=== PATIENT | male | born 1980 | race Caucasian/White ===

== ENCOUNTER 2016-08-17 16:04 | Inpatient (IN) | payer BC, MEDICARE ==
--- NOTE | ~2016-08-17 | IDS ---
Interim Discharge Summary [facility] [address] [place]. [address] NAME: SUDARSHAN MIGUEL : 76 STATUS : ADM IN PAT#: [id number] AGE: 36 ADM/REG DATE : 08/17/16 MR#: [id number] REPORT SERV DATE: 08/28/16 DICTATED BY: VITALY ANDREWS DATE: 08/28/16 REPORT STATUS : Draft TRANSCRIBED BY: MODSu DATE: 08/28/16 ADMISSION DATE: 08/17/2016 DISCHARGE DATE: ADDENDUM This dictation is an addition to interim discharge summary dictated by Dr. Bonilla on 08/22/2016. The patient had an LP performed looking for RAFAEL virus. 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 The patient had initially been on a five-day course of high dose steroids which was transitioned to prednisone 60 mg p.o. daily. Status post that transition, the patient significantly worsened neurologically, resulting in him failing a swallow study. Neurology has been following the patient. I recommended restarting a three-day course of high-dose steroids 1000 mg Solu-Medrol q. 24 hours for 3 days, status post resumption of that next day has been some improvement noted in his strength. Given his diagnosis of PML and given that there is no available treatment at this point and given that the patient has a neurologist at the in [place] and the plan is to initiate transfer from [facility] to the in [place]. Transfer to be initiated by a neurologist who is following. Plan has been discussed with the family and they are agreeable with this plan. Discharge planning is pending completion of transfer arrangements. The patient was started on a 3-day IV Solu-Medrol 1000 mg on Sunday. Today 08/28/2016 will be day 3 of that therapy. Subsequently the patient will be transitioned back to 60 mg p.o. daily. Neurology is still following on the case and will be initiating transfer. INDRA/ANDREW Vitaly Andrews MD / [id number] CC: Vitaly Andrews MD
--- NOTE | ~2016-08-17 | CN ---
Consultation Report [facility] [address] [place]. [address] NAME: SUDARSHAN MIGUEL : 76 STATUS : ADM IN PAT#: [id number] AGE: 36 ADM/REG DATE : 08/17/16 MR#: [id number] REPORT SERV DATE: 08/19/16 DICTATED BY: DATE: REPORT STATUS : Draft TRANSCRIBED BY: MODL DATE: 08/18/16 NEUROLOGY CONSULTATION. DATE OF CONSULTATION: 08/18/2016 REASON FOR CONSULT: MS exacerbation. HISTORY OF PRESENT ILLNESS: This is a 36-year-old male who presented to [facility] on 08/17/2016 secondary to progressive MS symptoms. Also, the patient apparently has become more weak with disequilibrium, falls, inability to use a walker as well as confusion and dysarthria. Family reports the patient does have recent steroid roughly three to four weeks ago for presumably MS exacerbation with the patient himself denies any significant improvement, also family apparently think there is transient improvement after steroid therapy, also the patient's most recent weakness and problems apparently started roughly one to two weeks ago. The patient was recently taken off Tecfidera in April 2016 secondary to leukopenic reason where the patient's MS was previously well controlled on combination of Tysabri as well as subsequently Tecfidera. The patient is RAFAEL virus positive. The patient at baseline uses a walker to ambulate and sometimes uses a cane. Able to feed himself and able to carcamo shaving, but the patient is a poor historian himself likely secondary to recent confusion. The patient's case was discussed with the patient's primary neurologist, which is Dr. Megan Kirk. The patient in addition also goes to [facility] in [place] for second opinion and with his MS medication now mostly managed through [facility] in [place]. REVIEW OF SYSTEMS: Otherwise negative except for those mentioned in the HPI. PAST MEDICAL HISTORY: Significant for multiple sclerosis, difficult to control. Previously on Tysabri as well as Tecfidera with the patient previously noted to be RAFAEL virus positive. The patient was also noted to have remote history of seizures in the past. ALLERGIES: NO KNOWN DRUG ALLERGIES WERE NOTED. HOME MEDICATIONS: 1. Baclofen. 2. Vitamin D. 3. Dextromethorphan with quinidine. 4. Keppra 500 mg p.o. b.i.d. 5. Provigil. 6. Multivitamin. SOCIAL HISTORY: Per medical records. He denies tobacco, alcohol, or recreational drug usage. Consultation Report [facility] [address] [place]. [address] NAME: SUDARSHAN MIGUEL : 76 STATUS : ADM IN PAT#: [id number] AGE: 36 ADM/REG DATE : 08/17/16 MR#: [id number] REPORT SERV DATE: 08/19/16 DICTATED BY: DATE: REPORT STATUS : Draft TRANSCRIBED BY: MODL DATE: 08/18/16 FAMILY HISTORY: Significant for coronary artery disease. The patient was noted to have no known drug allergies at the time of evaluation. PHYSICAL EXAMINATION: VITAL SIGNS: At the time of evaluation demonstrated T-max of 97.6, heart rate of 61 to 90, respirations of 14 to 18, and blood pressure of 97 to 108/55 to 66. GENERAL: The patient is well developed, well nourished, in no acute distress. Cardiovascular: Regular rate and rhythm. No carotid bruits were otherwise auscultated. PULMONARY: Clear to auscultation bilaterally. NEUROLOGICAL: Generally the patient alert and oriented to person, place, year, and month. Follow some simple commands, at the time of evaluation was having difficulty following complex commands. Dysarthria was noted with difficulties with registration and recall. The patient in addition also noted to have some mild aphasia at the time of evaluation. Cranial nerves 2 through 12, pupils are equal at the time of evaluation, with the patient's right pupil was sluggish to reactivity. The patient was noted to have saccadic eye movement. Also, the patient was noted to have decreased nasolabial fold as well as asymmetric facial expression with left facial weakness. Tongue was noted to be deviated. The patient was also noted to have asymmetric sensation on the patient's face. Also, the patient noted to have spastic movement of bilateral upper extremity, right worse than the left. The patient, in addition, was also noted to have decreased sensation in the left upper extremity and right lower extremity at the time of evaluation. The patient was noted to have ataxia in bilateral upper extremities. Also the patient was noted to have roughly 4-/5 right upper extremity strength and 4+/5 left upper extremity strength and 3-/5 bilateral lower extremity strength. At the time of evaluation, hyperreflexia was noted. Upgoing toe on bilateral plantar reflexes. Gait was not evaluated due to the patient's weakness. The patient's baseline requires a walker to ambulate. LABORATORY STUDIES: Demonstrated a white blood cell count of 3.4, hemoglobin of 15.3, hematocrit of 43.1, and platelet count of 229. Chemistry Panel: Sodium 140, potassium 3.9, chloride 107, bicarb 24, BUN of 14, creatinine of 0.77, glucose of 141, and calcium of 8.7. CT scan of the brain is concerning for possible new MS lesion in the left frontal area with a possible hypoattenuation for possible surrounding edema. IMPRESSION: 1. Multiple sclerosis exacerbation. The patient reports a four months duration of progressive symptom as well as a functional decline without significant improvement after prior Solu-Medrol therapy roughly three to four weeks ago. Also family members supposedly reported to the ER, last night the patient has some transient improvement after recent steroid therapy. Discussed the patient's case with a local neurologist, Dr. Megan Kirk, who is aware of the patient's case. Given the patient's RAFAEL virus positivity previous Tysabri therapy as well as Tecfidera therapy concerning for Consultation Report [address] [address] NAME: SUDARSHAN MIGUEL : 76 STATUS : ADM IN [facility]#: [id number] AGE: 36 ADM/REG DATE : 08/17/16 MR#: [id number] REPORT SERV DATE: 08/19/16 DICTATED BY: DATE: REPORT STATUS : Draft TRANSCRIBED BY: MODL DATE: 08/18/16 possible progressive MS as well as a potential PML, as a result we are recommending MRI of the brain with and without contrast. We will continue day 2/3 IV Solu-Medrol if MRI looks significantly worse compared to previous scan on 08/01/2016. We will consider a spinal tap for evaluation of possible PML. RECOMMENDATION: 1. Day 2/3 IV Solu-Medrol. 2. MRI of the brain with and without contrast. 3. May need a lumbar puncture for evaluation. [facility]/MODL Ahmet Kothari MD / [id number] CC: Danyel Campbell M.D.
--- NOTE | ~2016-08-17 | IDS ---
Interim Discharge Summary [facility] [address] [place]. [address] NAME: SUDARSHAN MIGUEL : 76 STATUS : ADM IN PAT#: [id number] AGE: 36 ADM/REG DATE : 08/17/16 MR#: [id number] REPORT SERV DATE: 09/18/16 DICTATED BY: CHER SKAGGS DATE: 09/17/16 REPORT STATUS : Draft TRANSCRIBED BY: MODL DATE: 09/17/16 ADMISSION DATE: 08/17/2016 DISCHARGE DATE: CURRENT DIAGNOSES: At the interim discharge summary include: 1. Progressive multiple sclerosis. The patient currently has been changed from IV steroids to oral steroids with very slow tapering. 2. Dysphagia with dysphonia, status post PEG tube insertion done by Dr. Lai, Surgery. The patient tolerating very well feeding tube. 3. Urinary tract infection with urine culture Escherichia coli. Antibiotic day four. 4. History of seizure. 5. Constipation, resolved. 6. Weakness, instability. CONSULTANTS DURING THIS HOSPITALIZATION: This week was Dr. Kothari, Neurology, who signed off. Dr. Lai signed off. HOSPITAL COURSE: This is a very pleasant, unfortunate 36 years old gentleman, who has a history of multiple sclerosis for 20 years, who has been admitted to hospital with MSSA exacerbation. For further details, please see history and physical exam of Dr. Rudi Baron, as well as interim discharge summaries of Dr. Dimas, Dr. Morley, Dr. Cadet as well. Briefly, this patient has been admitted with an MS exacerbation. The patient received IVIG, IV Solu-Medrol. He has been in treatment for MS, followed also in [place] by a doctor at [facility]. There was no significant improvement, and the patient was admitted to the hospital with a worsening functional status. The patient failed swallow study test multiple times. He underwent PEG tube insertion and PEG tube has been inserted by Surgery, that took place on 09/07/2016. The patient has been started on tube feeds with no complications and he is tolerating them very well. The patient has been referred to a couple of rehabs, but so far, the patient has been refused for those facilities. Currently, the patient has been referred to [facility] facility and we are awaiting an evaluation and hopefully acceptance to [facility] for inpatient rehab. He also has been diagnosed with urinary tract infection this week, for which he is on Rocephin day four of antibiotics. The patient remained extremely weak and debilitated, and also, there were no significant changes with stable symptoms during this week of hospitalization. Hopefully, the patient would be able to be transferred to a [facility] facility this week for inpatient rehab. Neurology has recommended slow tapering of his steroids with prednisone 60 mg p.o. daily for seven days, then 50 p.o. daily for seven days, then 40 p.o. daily for seven days, then 30 p.o. daily for seven days, then 20 p.o. daily for seven days, then 10 mg p.o. daily for seven days. The patient's neurologist Dr. Kothari has signed off on the case and currently we again are waiting for inpatient rehab. The patient has poor prognosis and the patient's family has been updated daily by the neurologist as well as by the hospitalist. Medications currently at the interim discharge summary include Dulcolax p.r.n., Rocephin, Lovenox, Keppra, Protonix, and prednisone. Interim Discharge Summary [address] [address] NAME: SUDARSHAN MIGUEL : 76 STATUS : ADM IN [facility]#: [id number] AGE: 36 ADM/REG DATE : 08/17/16 MR#: [id number] REPORT SERV DATE: 09/18/16 DICTATED BY: CHER SKAGGS DATE: 09/17/16 REPORT STATUS : Draft TRANSCRIBED BY: MODL DATE: 09/17/16 My partner is going to start to see Mr. José Miguel Gama from 09/19/2016. [facility]/MODL Cher Skaggs M.D. / [id number] CC: Cher Skaggs M.D.
--- NOTE | ~2016-08-17 | IDS ---
Interim Discharge Summary [facility] [address] [place]. [address] NAME: SUDARSHAN MIGUEL : 76 STATUS : ADM IN PAT#: [id number] AGE: 36 ADM/REG DATE : 08/17/16 MR#: [id number] REPORT SERV DATE: 09/03/16 DICTATED BY: PRESLEY MORLEY DATE: 09/03/16 REPORT STATUS : Draft TRANSCRIBED BY: MODL DATE: 09/03/16 ADMISSION DATE: 08/17/2016 DISCHARGE DATE: CONSULTANTS: Ahmet Kothari M.D., Neurology, and Dr. Crews of GI. PROBLEM LIST: 1. Severe recurring exacerbations multiple sclerosis. 2. Previous seizure. 3. Left lower lobe atelectasis, resolved. 4. Small volume lower gastrointestinal bleed. 5. Episodes of intermittent sinus bradycardia and sinus tachycardia. HISTORY: This patient has had aggressive multiple sclerosis and in the past had been on Tysabri, later was on Tecfidera, previously was noted to be RAFAEL virus positive. He was brought to the emergency room with increased problems with his equilibrium and falling, confusion, and difficulty with speaking. He reportedly had some recent steroid bolus three or four weeks previous without significant improvement. He had been taken off Tecfidera in April 2016 due to leukopenia. During his hospitalization, he has been followed closely by Dr. Kothari and Dr. Aragon, of Neurology. He has had some courses of IV steroids and based on his previous medications and his MRI imaging, there was some concern that he might have PML. The patient has undergone spinal tap on 08/21/2016, had only 1 white blood cells, 5 red blood cells, glucose was 81, protein was 62.7. The HSV type 1 and 2 negative, RAFAEL virus was detected. There was concern that it might be PML. Dr. Kothari, his neurologist here has call to his primary neurologist Dr. Megan Kirk. They have discussed the case. Dr. Kothari has also been calling and talking to Dr. Bravo, the patient's other neurologist that sees him at [facility] in [place]. There has been concern that he might have primarily PML at this point in time. Images of the MRI were sent to Dr. Bravo who felt that it was more consistent with PML. 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 This was sent off to a research lab and Dr. Kothari as of 09/03/2016 received notice from the "focus lab" that the patient's CSF was RAFAEL virus negative. She therefore feels that his deterioration is due to progressive multiple sclerosis so she started back on IV Solu-Medrol and IVIG for five days. When the patient gets steroid, he seems to perk up. When he is off them he certainly seems to worsen with more lethargy, difficulty talking, in fact he got to where he could not speak at all. He had progressive difficulty with swallowing. Because of the progressive swallowing problems, GI Dr. Crews's team has seen him and planning for PEG tube placement on 09/04/2016. The patient's medications have been converted over to intravenous. There was attempt at placement of a Dobbhoff tube but because he could not cooperate and swallow, it was not successful. Because of the high-dose steroids he is back on, he is getting some Protonix for GI ulcer Interim Discharge Summary [address] [address] NAME: SUDARSHAN MIGUEL : 76 STATUS : ADM IN [facility]#: [id number] AGE: 36 ADM/REG DATE : 08/17/16 MR#: [id number] REPORT SERV DATE: 09/03/16 DICTATED BY: PRESLEY MORLEY DATE: 09/03/16 REPORT STATUS : Draft TRANSCRIBED BY: MODL DATE: 09/03/16 prophylaxis. Nursing staff has noticed a very small volume of bright red blood per rectum occasionally. The patient's and parents and brothers have been supportive and present and have been updated throughout by Dr. Kothari and myself. The patient has had some episodes of sinus bradycardia, there was no good explanation for. He is not on any medications to slow his heart rate, and his TSH was 3.93 which is only slightly elevated. He over the last couple of days has had couple of episodes of sinus tachycardia. These seemed to correlate with when he was holding his head as if he was in pain and when he would get pain medications these would resolve. ANNIA/ANDREW Presley Morley M.D. / [id number] CC: Presley Morley M.D.
--- NOTE | ~2016-08-17 | CN ---
Consultation Report [facility] [address] [place]. [address] NAME: SUDARSHAN VALDEZ : 76 STATUS : ADM IN PAT#: [id number] AGE: 36 ADM/REG DATE : 08/17/16 MR#: [id number] REPORT SERV DATE: 09/01/16 DICTATED BY: CORIN FLOYD DATE: 09/01/16 REPORT STATUS : Draft TRANSCRIBED BY: MODL DATE: 09/01/16 GI CONSULTATION DATE OF CONSULTATION: 09/01/2016 REASON FOR CONSULTATION: Evaluation and management of the patient's progressive dysphagia and lot of multiple sclerosis, questionable PML. HISTORY OF PRESENT ILLNESS: Mr. Valdez is a 36-year-old male patient, who presented to [facility] on the with a chief complaint of MS flare. He had been having a few weeks of worsening weakness as well as decline in his neurologic function prior to his admission. He has a history of multiple sclerosis followed by Dr. Heredia, here in [place], as well as he sees Neurology at the [facility] in [place]. He was on the medication called Tecfidera and was taken off that in 04/2016 secondary to leukopenia and has had MS exacerbation really since end of June. He was placed on some steroids with temporary improvement but not much since then. A week or two prior to admission, he began to have further decline consisting of disequilibrium, falls, weakness, and inability to use his walker as well as dysarthria. He has been seen by Neurology here. He has had an MRI which is concerning for questionable PML. He has had RAFAEL virus obtained, titer is pending. Secondary to progressive complaints of dysphagia, GI was consulted for PEG tube placement. I have discussed PEG tube placement with the patient as well as his stepfather who was present at the bedside. I discussed risks, benefits, alternatives, and complications with him to include, but not limited to risk of bleeding, perforation, infection, reaction to medications, as well as cardiac and pulmonary side effects. They were agreeable to proceed. PAST MEDICAL HISTORY: Positive for multiple sclerosis, now questionable PML, as well as history of seizure disorder. SURGICAL HISTORY: None. ALLERGIES: NO KNOWN DRUG ALLERGIES. HOME MEDICATIONS: Baclofen, Vitamin D, dextromethorphan with quinidine, Keppra, Provigil, and multivitamin. SOCIAL HISTORY: He is . No alcohol, tobacco, or illicit drug use. FAMILY HISTORY: Noncontributory from a GI standpoint. REVIEW OF SYSTEMS: A 10-point review of systems has been obtained with the pertinent positives addressed in the history of present illness. PERTINENT LABORATORY DATA: Sodium is 141, potassium is 4.6, BUN is 24, creatinine is 0.66. Consultation Report [facility] [address] [place]. [address] NAME: SUDARSHAN VALDEZ : 76 STATUS : ADM IN PAT#: [id number] AGE: 36 ADM/REG DATE : 08/17/16 MR#: [id number] REPORT SERV DATE: 09/01/16 DICTATED BY: CORIN FLOYD DATE: 09/01/16 REPORT STATUS : Draft TRANSCRIBED BY: ANDREW DATE: 09/01/16 White count is 7.1, hemoglobin is 15.2, hematocrit is 43.1, platelet count 171 with an INR of 1.1. PHYSICAL EXAMINATION: VITAL SIGNS: Temperature 97.1, pulse 84, respirations 16, and blood pressure 96/56. NEURO: Reveals an alert, male, resting in bed. GENERAL: He is cooperative. He is in no distress. He is awake. He has notable spastic movements on his upper extremities. HEAD, EARS, EYES, NOSE, AND THROAT: Anicteric. Pupils are equal, round, and reactive to light and accommodation. Normocephalic and atraumatic. NECK: No JVD. No palpable nodes. LUNGS: Diminished throughout with normal respiratory effort exhibited. Equal expansion. CARDIOVASCULAR: Regular rate and rhythm. ABDOMEN: Soft, flat, nontender with active bowel sounds in all four quadrants. EXTREMITIES: No edema. Normal distal pulses. SKIN: Warm, dry, and intact. ASSESSMENT AND PLAN: 1. Progressive dysphagia secondary to multiple sclerosis. 2. MS exacerbation with questionable PML, ongoing workup pending. 3. Seizures with being on Keppra. PLAN: 1. Anticipate PEG tube on Sunday09/04/2016. 2. Hold Lovenox after his dose. 3. We will have Nutrition see him for tube feeding recommendations. 4. Add preprocedure Ancef prior to PEG tube. We will follow. DG/MODL ARMIDA Avila / [id number] CC: Harish Morley M.D.
--- NOTE | ~2016-08-17 | HP ---
History And Physical [facility] [address] [place]. [address] NAME: SUDARSHAN VALDEZ : 76 STATUS : ADM IN PAT#: [id number] AGE: 36 ADM/REG DATE : 08/17/16 MR#: [id number] REPORT SERV DATE: 08/18/16 DICTATED BY: SHEEBA ROLLE DATE: 08/17/16 REPORT STATUS : Draft TRANSCRIBED BY: MODSu DATE: 08/17/16 DATE OF ADMISSION: 08/17/2016 POINT OF ENTRY: [facility] Emergency Department. NEUROLOGIST: Dr. Megan Kirk. CHIEF COMPLAINT: MS flare. HISTORY OF PRESENT ILLNESS: Mr. Valdez is a 36-year-old gentleman with history of multiple sclerosis, who presents to the emergency department today with few week history of worsening weakness and decline in neurologic function. The patient has a history of multiple sclerosis. He is followed by Dr. Kirk here in [place] as well as by a neurologist through the [facility] in [place]. He reportedly was taken off his Tecfidera in April of 2016 for leukopenia. He has had MS exacerbation sensed in in the end of June early July and was placed on a dose of steroids with some temporary improvement in his symptoms. Family states that beginning about a week or two ago, he is again started to have significant decline, including disequilibrium, falls, weakness with now inability to use his walker as well as some confusion and dysarthria. Family presented to the emergency department today hoping to get some kind of help such as home health and was now refer to inpatient admission. Initial evaluation in the emergency department for labs otherwise unremarkable. CT scan of the brain showed extensive bilateral white matter lesions consistent with multiple sclerosis as well as an active multiple sclerosis plaque in the frontal horn of the left lateral ventricle, consistent with acute MS exacerbation as this plaque was not seen on a recent MRI from approximately two weeks ago. Dr. Kirk was contacted and she recommended inpatient admission as well as initiation of Solu-Medrol 1 g daily for the next three days. COMPREHENSIVE REVIEW OF SYSTEMS: Otherwise negative unless listed in history of present illness. PREVIOUS MEDICAL HISTORY: 1. Multiple sclerosis. 2. Remote history of seizure. SURGICAL HISTORY: None. ALLERGIES: NO KNOWN DRUG ALLERGIES. HOME MEDICATIONS: 1. Baclofen 10 mg t.i.d. 2. Vitamin D 400 units daily. 3. Dextromethorphan with quinidine 20-10 one tablet b.i.d. 4. Keppra 500 mg b.i.d. History And Physical [address] [address] NAME: SUDARSHAN VALDEZ : 76 STATUS : ADM IN PAT#: [id number] AGE: 36 ADM/REG DATE : 08/17/16 MR#: [id number] REPORT SERV DATE: 08/18/16 DICTATED BY: SHEEBA ROLLE DATE: 08/17/16 REPORT STATUS : Draft TRANSCRIBED BY: ANDREW DATE: 08/17/16 5. Provigil 200 mg daily p.r.n. 6. Multivitamin one tablet daily. SOCIAL HISTORY: Denies any tobacco, alcohol, or illicits. FAMILY MEDICAL HISTORY: Notable for coronary artery disease in extended family members, but no history of multiple sclerosis in immediate or extended family members. LABORATORY DATA AND IMAGIN. White count is 5.5, hemoglobin is 16.8, hematocrit is 48.1, and platelet count is 208. 2. Sodium is 141, potassium 4.2, chloride 105, carbon dioxide 26, BUN 16, creatinine 0.81, glucose is 106, calcium is 8.9, magnesium is 2.0, protein 7.2, albumin is 3.8, bilirubin is 0.8, ALT is 55, AST 27, alkaline phosphatase is 114. 3. CT scan of the brain shows extensive bilateral white matter lesions consistent with multiple sclerosis as well as an acute-appearing multiple sclerosis plaque in the frontal horn of the left lateral ventricle, not previously seen on 08/01/2016 MRI. PHYSICAL EXAMINATION: VITAL SIGNS: Temperature is 98.2 degrees Fahrenheit, pulse is 78, respirations 16, saturating 99% on room air, blood pressure is 120/73. GENERAL: The patient is awake, alert, and in no acute distress, resting comfortably in bed. He is a well-developed and well-nourished male. Family is at bedside. HEENT: Atraumatic and normocephalic. Moist mucous membranes. Pupils are equal, round, reactive to light and accommodation. Extraocular eye movements are intact. No scleral icterus. NECK: No jugular venous distention. No carotid bruits. CARDIAC: Regular rate and rhythm. No murmurs or gallops. Normal S1. Normal S2. LUNGS: Clear to auscultation bilaterally. No wheezes, rhonchi, or crackles. ABDOMEN: Soft, nontender, nondistended with good bowel sounds. No rebound, guarding, or rigidity. EXTREMITIES: Warm and well perfused. No cyanosis, clubbing, or edema. SKIN: Warm and dry. PSYCH: Affect appropriate. NEURO: Alert and oriented x3. Does have some dysarthria making it difficult to understand the patient. He does have diffuse weakness, however, his right upper and lower extremity is 4/5, which is weaker than the left. Otherwise, no focal neurologic deficits appreciated. Gait was not assessed. ASSESSMENT AND PLAN: Mr. Valdez is a 36-year-old gentleman with a known history of multiple sclerosis, now off his Tecfidera secondary to adverse drug reaction, who now presents with a few week history of falls, weakness, confusion, and dysarthria concerning for acute multiple sclerosis exacerbation. PROBLEM LIST: 1. Multiple sclerosis exacerbation. 2. Dysarthria. 3. Weakness. History And Physical [address] [address] NAME: SUDARSHAN VALDEZ : 76 STATUS : ADM IN [facility]#: [id number] AGE: 36 ADM/REG DATE : 08/17/16 MR#: [id number] REPORT SERV DATE: 08/18/16 DICTATED BY: SHEEBA ROLLE DATE: 08/17/16 REPORT STATUS : Draft TRANSCRIBED BY: ANDREW DATE: 08/17/16 PLAN: 1. Multiple sclerosis exacerbation. We will admit the patient to the Hospitalist Service. Consult Neurology. Neurology has already been contacted by the emergency department here and they recommended high-dose Solu-Medrol for three days, which we will institute. Consult Physical Therapy and Occupational Therapy for evaluation for possible need for home health and/or placement upon discharge. 2. Dysarthria. I suspect the patient's dysarthria is related to his MS exacerbation. CT scan of the brain showed no evidence of any acute cerebrovascular accident, but did show a new MS plaque in the left lateral ventricle area. Given recent MRI from 08/01/2016, we will defer decision for repeat MRI to Neurology in the morning. 3. DVT prophylaxis. Lovenox subcutaneously. CODE STATUS: The patient wished to be full code. JCB/MODL Sheeba Rolle MD / [id number] CC: Danyel Campbell M.D.
--- NOTE | ~2016-08-17 | DS ---
Discharge Summary [facility] [address] [place]. [address] NAME: SUDARSHAN VALDEZ : 76 STATUS : DIS IN PAT#: [id number] AGE: 36 ADM/REG DATE : 08/17/16 MR#: [id number] REPORT SERV DATE: 09/25/16 DICTATED BY: GUILLERMO STAHL DATE: 09/22/16 REPORT STATUS : Draft TRANSCRIBED BY: ANDREW DATE: 09/22/16 ADMISSION DATE: 08/17/2016 DISCHARGE DATE: 09/22/2016 DIAGNOSES: 1. Progressive multiple sclerosis. 2. Dysphagia. 3. Dysphonia. 4. Urinary tract infection, treated. 5. Debility. 6. History of seizure disorder. FOLLOWUP: The patient should follow up with the primary care physician in one to two weeks after rehab and to follow up with his neurologist, Dr. Kirk, in two weeks. The patient is to continue with high-risk aspiration precaution. DISCHARGE MEDICATIONS: Keppra 500 mg per PEG b.i.d.; Florastor one cap per PEG b.i.d.; prednisone taper, per Neurology, 50 mg p.o. q.a.m., to stop on 09/24/2016, then to change to 40 mg p.o. daily, and to stop on 10/01/2016, then change to 30 mg p.o. daily, to stop on 10/08/2016, then change to 20 mg p.o. q.a.m. and to stop on 10/15/2016, then change to 10 mg p.o. daily, to stop on 10/22/2016; Tylenol 650 mg per PEG q.4 hours p.r.n.; bisacodyl p.r.n., Vimpat per PEG p.r.n., Provigil 200 mg p.o. per PEG daily p.r.n.; Zofran 4 mg per PEG q.4 hours p.r.n.; cholecalciferol 400 units per PEG daily; multivitamin per PEG daily; Nexium suspension 40 mg per PEG daily for four weeks. CONSULTANTS: Dr. Izabella Kothari, Neurology; and General Surgery, Dr. Stuart Lai. HOSPITALIST: Dr. Rudi Baron, Dr. Bonilla, Dr. Dimas, Dr. Morley, Dr. Rosalie Cadet, Dr. Cher Bright. HOSPITAL COURSE: Please see multiple summaries per hospitalist for further details. In short, this is a 36-year-old male with a past medical history of multiple sclerosis for approximately 20 years, being followed by Dr. Kirk, neurologist, locally as well as a specialist in [place]. The patient apparently has been treated for MS in [place] without significant improvement and was readmitted to [facility] for worsening symptoms. The patient was seen by Neurology, seen by Dr. Izabella Kothari, and the patient was initiated on steroids, initially started on IV Solu-Medrol and transitioned to prednisone. Due to the patient's dysphagia, he did require PEG tube placement laparoscopically by Dr. Stuart Lai. The patient had an MRI. 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 His HSV serology was negative, but positive for RAFAEL virus that was detected. Dr. Izabella Kothari, neurologist, consulted with the patient's primary neurologist, Dr. Kirk, and Dr. Bravo, the patient's neurologist in [place] and images were sent to the patient's [place] physician. Therefore, the patient was seen by a specialist/regional expert on PML, who advised the CSF RAFAEL virus titer and Dr. Kothari, as per report, per Dr. Morley's note received a focus lab of a negative RAFAEL virus. Therefore, active RAFAEL virus was ruled out, and the patient was initiated on IVIG and continued on steroid per neurology for a progressive Discharge Summary [address] [address] NAME: SUDARSHAN VALDEZ : 76 STATUS : DIS IN PAT#: [id number] AGE: 36 ADM/REG DATE : 08/17/16 MR#: [id number] REPORT SERV DATE: 09/25/16 DICTATED BY: GUILLERMO STAHL DATE: 09/22/16 REPORT STATUS : Draft TRANSCRIBED BY: MODL DATE: 09/22/16 multiple sclerosis. The patient continued to require physical therapy, occupational therapy, and family also agreed for inpatient rehab and attended care for Mr. Valdez initiating on 09/19/2016 for which at that time the patient's acute initial workup was already performed. Again, at that time, the patient was awaiting rehab approval. He continued to tolerate his tube feeds. No signs of aspiration. Vital signs remained stable and afebrile. The patient was approved for inpatient rehab at [facility]. Case Management initially had trouble of finding an inpatient rehab facility due to the patient being denied by multiple facilities, but was approved for [facility], and the facility was reviewed by family and also approved by family/ for inpatient rehab, and the patient was discharged and transferred to an inpatient rehab at [facility]. DIMAS/MODL Guillermo Stahl M.D. / [id number] CC: Danyel Mckee M.D. Sally Horne, MD
--- NOTE | ~2016-08-17 | DS ---
Discharge Summary [facility] [address] [facility] [place]. [address] NAME: SUDARSHAN MIGUEL : 76 STATUS : ADM IN PAT#: [id number] AGE: 36 ADM/REG DATE : 08/17/16 MR#: [id number] REPORT SERV DATE: 08/24/16 DICTATED BY: VITALY ANDREWS DATE: 08/23/16 REPORT STATUS : Draft TRANSCRIBED BY: MODL DATE: 08/23/16 ADMISSION DATE: 08/17/2016 DISCHARGE DATE: BRIEF HISTORY: The patient is a 36-year-old year old male with a history of multiple sclerosis, who presented to the hospital and was admitted secondary to multiple sclerosis exacerbation. Please refer to H and P dictated on 08/18/2016. HOSPITAL COURSE: Please refer to interim discharge summary dictated by Dr. Myles Bonilla on 08/22/2016. In addition, the patient completed a course of Solu-Medrol, was transitioned by Nephrology to prednisone 60 mg p.o. daily. Also, vitamin D level was measured and noted to be 22, which was low. The patient has been placed on vitamin D supplementation to correct vitamin D deficiency. From Neurology standpoint, workup has been completed, and the patient is to be discharged to rehab facility. Case management has been consulted to assist with placing the patient in rehab. Likely, the patient will be accepted to a facility today and will be discharged to this facility. Plan has been discussed with the patient who voices understanding. DISCHARGE DIAGNOSES: 1. Multiple sclerosis exacerbation. 2. Vitamin D deficiency. 3. Muscle spasm. 4. Spastic paralysis. 5. Fatigue. DISCHARGE EXAM: VITAL SIGNS: Blood pressure 95/51 with a pulse of 58, respirations 14, and O2 saturation 96% on room air. GENERAL: The patient lying in bed with a flat affect. ENDS DOWN CHECKER present in room helping to feed the patient. HEENT: Normocephalic, atraumatic. Extraocular motor is intact. Anicteric sclerae. Moist oral mucosa. NECK: Trachea midline and symmetric. No masses noted. CARDIOVASCULAR: Regular rate and rhythm. S1, S2. No murmurs, rubs, or gallops. LUNGS: Clear to auscultation bilaterally. No added breath sounds. ABDOMEN: Positive bowel sounds. Nontender. Nondistended. EXTREMITIES: No cyanosis, no clubbing, no edema. MUSCULOSKELETAL: The patient appears overall weak and unable to lift feet off from bed. NEUROLOGIC: The patient is alert, very soft-spoken, not really answering my questions; however, the patient does appear alert and oriented. CONSULTANTS: Neurology was consulted in this case, Dr. Kothari. DISCHARGE MEDICATIONS: 1. Baclofen 10 mg p.o. three times a day. 2. Vitamin D - cholecalciferol 2000 units p.o. daily. 3. Keppra 500 mg p.o. twice a day. Discharge Summary [address] [address] NAME: SUDARSHAN MIGUEL : 76 STATUS : ADM IN [facility]#: [id number] AGE: 36 ADM/REG DATE : 08/17/16 MR#: [id number] REPORT SERV DATE: 08/24/16 DICTATED BY: VITALY ANDREWS DATE: 08/23/16 REPORT STATUS : Draft TRANSCRIBED BY: ANDREW DATE: 08/23/16 4. Multivitamin. 5. Prednisone 60 mg p.o. with breakfast. IMAGIN. Brain CT without contrast. Impression: Extensive bilateral white matter lesion consistent with history of MS. There is evidence, suggest an active MS plaque edges into the frontal horn of the left lateral ventricle with vasogenic edema and mild mass effect on the frontal horn of the lateral ventricle that was not present on the MRI from 08/01/2016. 2. MRI brain with and without contrast. Impression: Extensive deep white matter changes enhancement, characteristic, and history certainly consistent with moderate to marked burden of MS. The enhancing characteristics seen previously are stabilized. There is ongoing atrophy, [id number]. The corpus callosum in particular seems to be atrophied in advance of cerebral hemispheres. Findings are certainly consistent with relapsing remitting pattern. DISPOSITION: The patient will be discharged to rehab. ACTIVITY: As tolerated. DIET: Regular. INDRA/ANDREW Vitaly Andrews MD / [id number] CC: Vitaly Andrews MD
--- NOTE | ~2016-08-17 | OP ---
Record Of Operation [facility] [address] [place]. [address] NAME: SUDARSHAN MIGUEL : 76 STATUS : ADM IN PAT#: [id number] AGE: 36 ADM/REG DATE : 08/17/16 MR#: [id number] REPORT SERV DATE: 09/07/16 DICTATED BY: VITALY QUIJANO JR. DATE: 09/07/16 REPORT STATUS : Draft TRANSCRIBED BY: MODL DATE: 09/07/16 DATE OF PROCEDURE: 09/07/2016 SURGEON: Vitaly Quijano M.D. PLY CUTTER: Germain Guthrie. PROCEDURE: Laparoscopic gastrostomy tube placement. PREOPERATIVE DIAGNOSIS: Multiple sclerosis with aspiration. POSTOPERATIVE DIAGNOSIS: Multiple sclerosis with aspiration. ANESTHESIA: General. INDICATIONS: This patient has had history of multiple sclerosis. He has aspiration syndrome. Feeding tube was indicated. Endoscopic approach was not suitable in view of the stomach location, therefore laparoscopic approach was indicated. FINDINGS: On laparoscopic exam of the abdomen, the stomach is able to be pulled to the abdominal wall without significant tension and satisfactory tube placement is undertaken. DESCRIPTION OF PROCEDURE: With adequate general anesthesia, the patient was placed in the supine position. The abdomen was prepped and draped sterilely. Marcaine 0.5% was used for local infiltration of the trocar sites. A supraumbilical incision was made. The dissection was carried down sharply through the subcutaneous tissues. The fascia and perineum were opened. The peritoneal cavity was entered. A balloon-tipped trocar was introduced. The abdomen was insufflated with CO2. Then a 5 mm trocar was placed in the right upper quadrant and a grasper was introduced. The stomach was pulled down. Three T-fasteners were placed through the anterior abdominal wall and then a needle into the gastric lumen with a guidewire and then a series of dilators until the peel-away sheath was placed and then the 14-Slovenian G-tube was placed through the sheath into the gastric lumen. The sheath was peeled away and removed. The gastric balloon of the tube was inflated with 5 mL of sterile water and this was seated at the abdominal wall without tension and the T-fasteners were sewed to the abdominal wall to secure this in place as well along with the collar around the G-tube and the fixing bracket. Then, the midline incision was closed at the fascial layer with 0 PDS. All wounds were then closed with dermal Monocryl. Sterile dressings were applied. The patient left the operating room in satisfactory condition. The estimated blood loss was 10 mL. ZENAIDA/ANDREW Vitaly Quijano Jr., M.D. Record Of [address] [address] NAME: SUDARSHAN MIGUEL : 76 STATUS : ADM IN PAT#: [id number] AGE: 36 ADM/REG DATE : 08/17/16 MR#: [id number] REPORT SERV DATE: 09/07/16 DICTATED BY: VITALY QUIJANO JR. DATE: 09/07/16 REPORT STATUS : Draft TRANSCRIBED BY: ANDREW DATE: 09/07/16 / [id number] CC: Rosalie Cadet M.D.
--- NOTE | ~2016-08-17 | EEG ---
Electroencephalogram [facility] [address] [facility] [place]. [address] NAME: SUDARSHAN MIGUEL : 76 STATUS : ADM IN PAT#: [id number] AGE: 36 ADM/REG DATE : 08/17/16 MR#: [id number] REPORT SERV DATE: 08/31/16 DICTATED BY: DATE: REPORT STATUS : Draft TRANSCRIBED BY: MODL DATE: 08/31/16 NEUROLOGY EEG REPORT CLINICAL INDICATIONS: Encephalopathy. DESCRIPTION: This EEG was performed using 10/20 electrode placement system. During the EEG study, the patient was noted to have asymmetric background activity with the patient noted to have left-sided slowing as well as background attenuation especially in the left temporal parietal area. Otherwise, the patient was noted to have predominant occipital rhythm of roughly 10 hertz. Photic stimulation was performed with appropriate driving response, mostly seeing on the right side. Hyperventilation was not performed as the patient was not following instructions. The patient achieved drowsy state during the EEG study. No seizure activity or seizure discharge was otherwise noted. No ongoing electrographic seizure was seen during the EEG study. INTERPRETATION: This EEG study obtained during awake and drowsy state may be considered abnormal secondary to presence of slowing especially on the left side as well as background attenuation suggesting possible underlying structure abnormalities. Clinical correlation is otherwise recommended. No electrographic seizure was seen during the EEG evaluation. [facility]/ANDREW Ahmet Kothari MD / [id number] CC: Harish Morley M.D.
--- NOTE | ~2016-08-17 | IDS ---
Interim Discharge Summary [facility] [address] [place]. [address] NAME: SUDARSHAN MIGUEL : 76 STATUS : ADM IN PAT#: [id number] AGE: 36 ADM/REG DATE : 08/17/16 MR#: [id number] REPORT SERV DATE: 09/12/16 DICTATED BY: ROSALIE CADET DATE: 09/11/16 REPORT STATUS : Draft TRANSCRIBED BY: MODL DATE: 09/11/16 ADMISSION DATE: 08/17/2016 DISCHARGE DATE: PROBLEM LIST: 1. Progressive multiple sclerosis. The patient has been on all kinds of multiple sclerosis medications as an outpatient and was not tolerating the last medication. Seen by neurologists here, Dr. Aragon and Dr. Kothari. The last discussion between the family and Dr. Aragon was the patient will follow up at [facility] in [place], [facility] if they desire any experimental medication; otherwise, the patient will remain in 6 weeks of daily steroid dose, but no further treatment is planned. 2. Dysphagia status post PEG tube insertion done by Dr. Lai. HISTORY OF PRESENT ILLNESS: This is a very unfortunate 36-year-old male patient, who has suffered multiple sclerosis for 20 years, came to the hospital with MS flare and possible exacerbation. Please see dictated H and P. HOSPITAL COURSE: Please see dictated interim discharge summary with Dr. Bonilla and Dr. Dimas and Dr. Morley. Briefly, the patient was here admitted to hospital for worsening of functional status, weakness, had all kinds of evaluation. The patient went through three cycles of IVIG and IV Solu-Medrol without significant improvement. The patient has been on all kinds of treatment for multiple sclerosis. The patient is followed by Dr. Bravo, a doctor in neuro hospital in [facility]. All these measures did not make him any better. Later he failed swallow test multiple times. When I resumed the case at that time, he was not on any nutrient and waiting for the PEG tube insertion. We had to put the NG tube for few days until Dr. Lai can start the surgery. Initially, the PEG tube was ordered to get inserted by GI, Interventional Radiology; however, because of the anatomy issue, had to be done surgically. The patient had PEG tube insertion on 09/07/2016, and after that the tube feeding is going well without any problem. Had a long discussion regarding further plan and followup plan and rehab issue. [facility] denied this patient. Initially, the patient was going to go home with Home Health, but the family thought the nursing facility will be much better for this care, so we are waiting for the [facility] arrangement. Currently, the insurance approval is still pending. The patient has been stable for the whole time that I had to take care of this patient and tolerating tube feeding and is at the goal already. We will continue tube feeding and continuing steroid 60 mg per day, then cutting down every 10 per week, and the patient can follow up as an outpatient with the family support to the neuro hospital at [facility] if they desired any experimental medication. Has a very poor prognosis and the patient's family has been multiple times informed with the neurologist. NA/ANDREW Interim Discharge Summary [address] [facility] [place] [address] NAME: SUDARSHAN MIGUEL : 76 STATUS : ADM IN PAT#: [id number] AGE: 36 ADM/REG DATE : 08/17/16 MR#: [id number] REPORT SERV DATE: 09/12/16 DICTATED BY: ROSALIE CADET DATE: 09/11/16 REPORT STATUS : Draft TRANSCRIBED BY: ANDREW DATE: 09/11/16 Rosalie Cadet M.D. / [id number] CC: Rosalie Cadet M.D.
--- NOTE | ~2016-08-17 | IDS ---
Interim Discharge Summary [facility] [address] [place]. [address] NAME: SUDARSHAN MIGUEL : [birth year] STATUS : ADM IN PAT#: [id number] AGE: 36 ADM/REG DATE : 08/17/16 MR#: [id number] REPORT SERV DATE: 08/22/16 DICTATED BY: MYLES HILTON DATE: 08/21/16 REPORT STATUS : Draft TRANSCRIBED BY: MODL DATE: 08/21/16 ADMISSION DATE: 08/17/2016 DISCHARGE DATE: DATE OF DISCHARGE: Pending. CURRENT ADMISSION DIAGNOSES: Multiple sclerosis exacerbation, muscle spasms, spastic paralysis, remote history of seizure. CURRENT CONDITION: Critical. BRIEF HISTORY OF PRESENT ILLNESS: This is a 36-year-old male with medical history of multiple sclerosis, who presented to the hospital with symptoms of multiple sclerosis exacerbation with dysarthria and inability to walk and generalized fatigue. The patient is well-known to the Neurology Service and Neurology is currently on board, assisting in the management of this patient. HOSPITAL COURSE: 1. Multiple sclerosis exacerbation. The patient is currently receiving high dose Solu- Medrol and condition is currently slightly improving. 2. No known precipitant of acute exacerbation has been detected. The patient underwent a lumbar puncture in order to rule out PML. The PCR for RAFAEL virus is currently pending. 3. History of seizure disorder. The patient has remote history of seizure disorder. No evidence of seizure activity has been noted throughout the course of this admission. CONSULTATION: Neurology. Neurology is currently calling the shots on this patient and the hospitalist is currently assisting in the management of the patient. ESMEO/ANDREW Myles Hilton MD / [id number] CC: Myles Hilton MD
--- NOTE | ~2016-08-17 | EGD ---
EGD REPORT [facility] [address] [address] NAME: NATAN VALDEZ : [birth year] STATUS : ADM IN PAT#: [id number] AGE: 36 ADM/REG DATE : 08/17/16 MR#: [id number] REPORT SERV DATE: 09/04/16 DICTATED BY: NATAN CANTU DATE: 09/04/16 REPORT STATUS : Draft [facility]ANS[facility]IB[facility]: [facility] DATE: 09/04/16 [facility] Patient Name: Natan Valdez Date of : 1980 Attending MD: NATAN CANTU MD Procedure Date No Time: 09/04/2016 Procedure: Upper GI endoscopy Indications: Place PEG because patient is unable to eat, Place PEG due to dysphagia, Place PEG due to aspiration risk Referring MD: Harish Morley MD Medicines: Monitored Anesthesia Care Complications: No immediate complications. Estimated blood loss: None. Procedure: Pre-Anesthesia Assessment: - ASA Grade Assessment: III - A patient with severe systemic disease. After obtaining informed consent, the endoscope was passed under direct vision. Throughout the procedure, the patient's blood pressure, pulse, and oxygen saturations were monitored continuously. The GIF [id number] was introduced through the mouth, and advanced to the second part of duodenum. The upper GI endoscopy was accomplished without difficulty. The patient tolerated the procedure well. Findings: The examined esophagus was normal. The entire examined stomach was normal. The patient was placed in the supine position for PEG placement. The stomach was insufflated to appose gastric and abdominal sosa. However, due to inability to localize a site for safe percutaneous placement, inadequate transillumination and inadequate one-to-one localization (i.e. inadequate localization by palpation) PEG was not completed. The needle/trocar was not passed. One non-bleeding cratered duodenal ulcer with no stigmata of bleeding was found in the duodenal bulb. The lesion was 8 mm in largest dimension. Impression: - One duodenal ulcer with clean base. - Due to inability to localize a site for safe percutaneous placement, inadequate transillumination and inadequate one-to-one localization (i.e. inadequate localization by palpation) PEG was not completed. The needle/trocar was not passed. Recommendation: - Return patient to [facility] for [facility] care. - Use Protonix (pantoprazole) 40 mg IV BID for 8 weeks. - Refer to an interventional radiologist today to see if EGD REPORT [address] [place]. [address] NAME: EFFIENATAN SIERRA : [birth year] STATUS : ADM IN [facility]#: [id number] AGE: 36 ADM/REG DATE : 08/17/16 MR#: [id number] REPORT SERV DATE: 09/04/16 DICTATED BY: NATAN CANTU DATE: 09/04/16 REPORT STATUS : Draft TRANSCRIBED BY: [facility] DATE: 09/04/16 they [address] to place PEG tube; if not, will require surgical consult. Procedure Code(s): --- Professional --- 75295, Esophagogastroduodenoscopy, flexible, transoral; diagnostic, including collection of specimen(s) by brushing or washing, when performed (separate procedure) Diagnosis Code(s): --- Professional --- K26.9, Duodenal ulcer, unspecified as acute or chronic, without hemorrhage or perforation R63.3, Feeding difficulties Z43.1, Encounter for attention to gastrostomy R13.10, Dysphagia, unspecified CPT copyright 2013 [employer]. All rights reserved. The codes documented in this report are preliminary and upon icd 9 coder review may be revised to meet current compliance requirements. Natan Cantu MD NATAN CANTU MD 09/04/2016 8:01 AM This report has been signed electronically. Number of Addenda: 0 Note Initiated On: 09/04/2016 7:30 AM Scope Withdrawal Time 0 hours 0 minutes 0 seconds [id number] [address]
[2016-08-17 15:54] LABS: BASOPHILS 0.5 %; BASOPHILS ABSOLUTE 0.03 10/3/uL (0.0-0.16); EOSINOPHILS 4.2 %; EOSINOPHILS ABSOLUTE 0.23 10/3/uL (0.0-0.53); ER CBC TAT 0 Hrs 05 Mins; HEMATOCRIT 48.1 % (40.0-51.0); HEMOGLOBIN 16.8 g/dL (13.6-17.8); IMMATURE GRANULOCYTES 0.2 %; IMMATURE GRANULOCYTES ABSOLUTE 0.01 10/3/uL (0.0-0.11); LYMPHOCYTES 11.7 %; LYMPHOCYTES ABSOLUTE 0.65 10/3/uL (0.67-4.30); MEAN CORPUS HGB CONC 34.9 g/dL (32.0-36.0); MEAN CORPUSCULAR HEMOGLOB 32.7 pg (26.0-34.0); MEAN CORPUSCULAR VOLUME 93.8 fL (80-100); MEAN PLATELET VOLUME 9.6 fL (9.2-13.0); MONOCYTES 17.1 %; MONOCYTES ABSOLUTE 0.95 10/3/uL (0.21-1.20); NEUTROPHILS 66.3 %; NEUTROPHILS ABSOLUTE 3.67 10/3/uL (2.02-8.40); PLATELET COUNT 208 10/3/uL (150-400); RBC DISTRIBUTION WIDTH 12.6 % (12.0-16.0); RED CELL COUNT 5.13 10/6/uL (4.7-6.1); WHITE BLOOD CELLS 5.5 10/3/uL (4.5-10.5)
[2016-08-17 15:55] LABS: MANUAL DIFF NO %
[2016-08-17 16:15] LABS: A/G RATIO 1.1 (0.7-1.9); ALBUMIN 3.8 G/DL (3.5-5.0); ALKALINE PHOSPHATASE 114 U/L (45-117); BUN (BLOOD UREA NITROGEN) 16 MG/DL (6-23); CALCIUM, SERUM 8.9 MG/DL (8.5-10.4); CHLORIDE, SERUM 105 MMOL/L (96-112); CO2 (CARBON DIOXIDE) 26 MMOL/L (24-34); CREATININE 0.85 MG/DL (0.70-1.30); GFR AFRICAN AMERICAN 128 ML/MIN (>=60); GFR NON AFRICAN AMERICAN 111 ML/MIN (>=60); GLOBULIN 3.4 G/DL (2.5-4.1); GLUCOSE, SERUM 106 MG/DL (60-99); POTASSIUM, SERUM 4.2 MMOL/L (3.5-5.3); SGOT(AST) 27 U/L (5-40); SGPT(ALT) 55 U/L (5-65); SODIUM, SERUM 141 MMOL/L (135-148); TOTAL BILIRUBIN 0.8 MG/DL (0-1.2); TOTAL PROTEIN 7.2 G/DL (6.0-8.5)
[2016-08-17] MEDS ORDERED: KEPPRA500 PO (19:28)
[2016-08-17] MEDS ORDERED: PROVIGIL2 PO (19:29)
[2016-08-17] MEDS ORDERED: LIOR10 PO (19:31)
[2016-08-17] MEDS ORDERED: THERGRANM PO (19:31)
[2016-08-17] MEDS ORDERED: VITAMIN D400 UNI1 PO (19:31)
[2016-08-17] MEDS ORDERED: NUEDEXTA 20-101 EACH PO (19:33)
[2016-08-18 07:03] LABS: BASOPHILS 0 %; EOSINOPHILS 0 %; HEMATOCRIT 43.1 % (40.0-51.0); HEMOGLOBIN 15.3 g/dL (13.6-17.8); LYMPHOCYTES 13.9 %; LYMPHOCYTES ABSOLUTE 0.47 10/3/uL (0.67-4.30); MANUAL DIFF NO %; MEAN CORPUS HGB CONC 35.5 g/dL (32.0-36.0); MEAN CORPUSCULAR HEMOGLOB 32.6 pg (26.0-34.0); MEAN CORPUSCULAR VOLUME 91.7 fL (80-100); MONOCYTES 1.5 %; MONOCYTES ABSOLUTE 0.05 10/3/uL (0.21-1.20); NEUTROPHILS 84.6 %; NEUTROPHILS ABSOLUTE 2.85 10/3/uL (2.02-8.40); PLATELET COUNT 229 10/3/uL (150-400); RBC DISTRIBUTION WIDTH 12.7 % (12.0-16.0); WHITE BLOOD CELLS 3.4 10/3/uL (4.5-10.5)
[2016-08-18 07:16] LABS: A/G RATIO 1.1 (0.7-1.9); ALBUMIN 3.4 G/DL (3.5-5.0); ALKALINE PHOSPHATASE 101 U/L (45-117); BUN (BLOOD UREA NITROGEN) 14 MG/DL (6-23); CALCIUM, SERUM 8.7 MG/DL (8.5-10.4); CHLORIDE, SERUM 107 MMOL/L (96-112); CO2 (CARBON DIOXIDE) 24 MMOL/L (24-34); CREATININE 0.77 MG/DL (0.70-1.30); GFR AFRICAN AMERICAN 133 ML/MIN (>=60); GFR NON AFRICAN AMERICAN 115 ML/MIN (>=60); GLOBULIN 3.1 G/DL (2.5-4.1); GLUCOSE, SERUM 141 MG/DL (60-99); POTASSIUM, SERUM 3.9 MMOL/L (3.5-5.3); SGOT(AST) 17 U/L (5-40); SGPT(ALT) 48 U/L (5-65); SODIUM, SERUM 140 MMOL/L (135-148); TOTAL BILIRUBIN 0.7 MG/DL (0-1.2); TOTAL PROTEIN 6.5 G/DL (6.0-8.5)
[2016-08-18 17:36] LABS: ASCORBIC ACID (UR NOT ORDER) NEG (NEG); BILIRUBIN, URINE NEGATIVE (NEG); KETONE, URINE TRACE MG/DL (NEG); LEUKOCYTE ESTERASE(NOT OR NEG (NEG); WBC (NOT ORDERED) (RFLEX) 1 (0-5)
[2016-08-19 06:38] LABS: BASOPHILS 0 %; EOSINOPHILS 0 %; HEMATOCRIT 41.9 % (40.0-51.0); HEMOGLOBIN 14.3 g/dL (13.6-17.8); IMMATURE GRANULOCYTES 0.1 %; IMMATURE GRANULOCYTES ABSOLUTE 0.01 10/3/uL (0.0-0.11); LYMPHOCYTES 6.7 %; LYMPHOCYTES ABSOLUTE 0.45 10/3/uL (0.67-4.30); MEAN CORPUS HGB CONC 34.1 g/dL (32.0-36.0); MEAN CORPUSCULAR HEMOGLOB 32.1 pg (26.0-34.0); MEAN CORPUSCULAR VOLUME 94.2 fL (80-100); MEAN PLATELET VOLUME 9.7 fL (9.2-13.0); MONOCYTES 2.1 %; MONOCYTES ABSOLUTE 0.14 10/3/uL (0.21-1.20); NEUTROPHILS 91.1 %; NEUTROPHILS ABSOLUTE 6.16 10/3/uL (2.02-8.40); PLATELET COUNT 204 10/3/uL (150-400); RBC DISTRIBUTION WIDTH 12.7 % (12.0-16.0); RED CELL COUNT 4.45 10/6/uL (4.7-6.1)
[2016-08-19 06:43] LABS: BUN (BLOOD UREA NITROGEN) 12 MG/DL (6-23); CALCIUM, SERUM 8.4 MG/DL (8.5-10.4); CHLORIDE, SERUM 108 MMOL/L (96-112); CO2 (CARBON DIOXIDE) 24 MMOL/L (24-34); CREATININE 0.82 MG/DL (0.70-1.30); GFR AFRICAN AMERICAN 130 ML/MIN (>=60); GFR NON AFRICAN AMERICAN 112 ML/MIN (>=60); GLUCOSE, SERUM 144 MG/DL (60-99); POTASSIUM, SERUM 3.9 MMOL/L (3.5-5.3); SODIUM, SERUM 143 MMOL/L (135-148)
[2016-08-19 06:44] LABS: MANUAL DIFF NO %; WHITE BLOOD CELLS 6.8 10/3/uL (4.5-10.5)
[2016-08-20 05:38] LABS: BUN (BLOOD UREA NITROGEN) 14 MG/DL (6-23); CALCIUM, SERUM 8.6 MG/DL (8.5-10.4); CHLORIDE, SERUM 111 MMOL/L (96-112); CO2 (CARBON DIOXIDE) 25 MMOL/L (24-34); CREATININE 0.81 MG/DL (0.70-1.30); GFR AFRICAN AMERICAN 131 ML/MIN (>=60); GFR NON AFRICAN AMERICAN 113 ML/MIN (>=60); GLUCOSE, SERUM 147 MG/DL (60-99); POTASSIUM, SERUM 3.9 MMOL/L (3.5-5.3); SODIUM, SERUM 145 MMOL/L (135-148)
[2016-08-21 05:17] LABS: ALBUMIN 3.1 G/DL (3.5-5.0); BUN (BLOOD UREA NITROGEN) 17 MG/DL (6-23); CALCIUM, SERUM 8.3 MG/DL (8.5-10.4); CHLORIDE, SERUM 108 MMOL/L (96-112); CO2 (CARBON DIOXIDE) 29 MMOL/L (24-34); CREATININE 0.78 MG/DL (0.70-1.30); GFR AFRICAN AMERICAN 133 ML/MIN (>=60); GFR NON AFRICAN AMERICAN 115 ML/MIN (>=60); GLUCOSE, SERUM 131 MG/DL (60-99); PHOSPHORUS, SERUM 3.2 MG/DL (2.5-4.5); POTASSIUM, SERUM 3.6 MMOL/L (3.5-5.3); SODIUM, SERUM 144 MMOL/L (135-148)
[2016-08-21 05:18] LABS: INTERNATIONAL NORMAL RATI 1.1 UNITS (-); PROTIME (NOT ORD) 14.2 SEC (12.0-14.5)
[2016-08-21 05:22] LABS: BASOPHILS 0 %; EOSINOPHILS 0 %; HEMATOCRIT 44.4 % (40.0-51.0); HEMOGLOBIN 15.1 g/dL (13.6-17.8); IMMATURE GRANULOCYTES 0.3 %; IMMATURE GRANULOCYTES ABSOLUTE 0.03 10/3/uL (0.0-0.11); LYMPHOCYTES 5.7 %; LYMPHOCYTES ABSOLUTE 0.53 10/3/uL (0.67-4.30); MEAN CORPUSCULAR HEMOGLOB 32.4 pg (26.0-34.0); MEAN CORPUSCULAR VOLUME 95.3 fL (80-100); MONOCYTES 10.3 %; MONOCYTES ABSOLUTE 0.97 10/3/uL (0.21-1.20); NEUTROPHILS 83.7 %; NEUTROPHILS ABSOLUTE 7.85 10/3/uL (2.02-8.40); PLATELET COUNT 241 10/3/uL (150-400); RBC DISTRIBUTION WIDTH 12.8 % (12.0-16.0); RED CELL COUNT 4.66 10/6/uL (4.7-6.1); WHITE BLOOD CELLS 9.4 10/3/uL (4.5-10.5)
[2016-08-21 05:24] LABS: MANUAL DIFF NO %
[2016-08-21 10:39] LABS: GLUCOSE CSF 81 MG/DL (45-70); TOTAL PROTEIN, CSF 62.6 MG/DL (15-45)
[2016-08-21 11:22] LABS: CSF BASO 0 % (NO REF RANGE); CSF COLOR (NOT ORD) COLORLESS (COLORLESS); CSF EOS 0 % (0-1); CSF LYMPH (NOT ORD) 36 % (28-96); CSF MONO 64 % (16-56); CSF RBC (NOT ORD) 5 MM3 (NO REFERENCE); CSF SEGS (NOT ORD) 0 % (0-7); CSF WBC (NOT ORD) 1 /uL (0-10)
[2016-08-21 11:23] LABS: CSF APPEARANCE (NOT ORD) CLEAR (CLEAR); CSF XANTHROCHROMIA NEG (NEG)
[2016-08-22 04:34] LABS: BASOPHILS 0 %; EOSINOPHILS 0 %; HEMATOCRIT 45.4 % (40.0-51.0); HEMOGLOBIN 15.7 g/dL (13.6-17.8); IMMATURE GRANULOCYTES 0.3 %; IMMATURE GRANULOCYTES ABSOLUTE 0.02 10/3/uL (0.0-0.11); LYMPHOCYTES 8.8 %; MEAN CORPUS HGB CONC 34.6 g/dL (32.0-36.0); MEAN CORPUSCULAR HEMOGLOB 32.6 pg (26.0-34.0); MEAN CORPUSCULAR VOLUME 94.4 fL (80-100); MEAN PLATELET VOLUME 10.3 fL (9.2-13.0); MONOCYTES 9.4 %; MONOCYTES ABSOLUTE 0.64 10/3/uL (0.21-1.20); NEUTROPHILS 81.5 %; NEUTROPHILS ABSOLUTE 5.53 10/3/uL (2.02-8.40); PLATELET COUNT 223 10/3/uL (150-400); RBC DISTRIBUTION WIDTH 12.6 % (12.0-16.0); RED CELL COUNT 4.81 10/6/uL (4.7-6.1); WHITE BLOOD CELLS 6.8 10/3/uL (4.5-10.5)
[2016-08-22 04:35] LABS: MANUAL DIFF NO %
[2016-08-22 04:53] LABS: ALBUMIN 3.3 G/DL (3.5-5.0); BUN (BLOOD UREA NITROGEN) 21 MG/DL (6-23); CALCIUM, SERUM 8.9 MG/DL (8.5-10.4); CHLORIDE, SERUM 108 MMOL/L (96-112); CO2 (CARBON DIOXIDE) 24 MMOL/L (24-34); CREATININE 0.74 MG/DL (0.70-1.30); GFR AFRICAN AMERICAN 136 ML/MIN (>=60); GFR NON AFRICAN AMERICAN 117 ML/MIN (>=60); GLUCOSE, SERUM 118 MG/DL (60-99); PHOSPHORUS, SERUM 3.8 MG/DL (2.5-4.5); POTASSIUM, SERUM 3.9 MMOL/L (3.5-5.3); SODIUM, SERUM 141 MMOL/L (135-148)
[2016-08-22 07:54] LABS: BUN (BLOOD UREA NITROGEN) 21 MG/DL (6-23); CALCIUM, SERUM 8.3 MG/DL (8.5-10.4); CHLORIDE, SERUM 104 MMOL/L (96-112); CO2 (CARBON DIOXIDE) 29 MMOL/L (24-34); CREATININE 0.77 MG/DL (0.70-1.30); GFR AFRICAN AMERICAN 133 ML/MIN (>=60); GFR NON AFRICAN AMERICAN 115 ML/MIN (>=60); GLUCOSE, SERUM 89 MG/DL (60-99); POTASSIUM, SERUM 3.5 MMOL/L (3.5-5.3); SODIUM, SERUM 142 MMOL/L (135-148)
[2016-08-23 05:19] LABS: A/G RATIO 1.1 (0.7-1.9); ALBUMIN 3.1 G/DL (3.5-5.0); ALKALINE PHOSPHATASE 93 U/L (45-117); BASOPHILS 0 %; CALCIUM, SERUM 8.3 MG/DL (8.5-10.4); CHLORIDE, SERUM 108 MMOL/L (96-112); CO2 (CARBON DIOXIDE) 25 MMOL/L (24-34); CREATININE 0.69 MG/DL (0.70-1.30); EOSINOPHILS 0.8 %; EOSINOPHILS ABSOLUTE 0.06 10/3/uL (0.0-0.53); GFR AFRICAN AMERICAN 140 ML/MIN (>=60); GFR NON AFRICAN AMERICAN 120 ML/MIN (>=60); GLOBULIN 2.9 G/DL (2.5-4.1); GLUCOSE, SERUM 78 MG/DL (60-99); HEMATOCRIT 46.2 % (40.0-51.0); HEMOGLOBIN 16.1 g/dL (13.6-17.8); IMMATURE GRANULOCYTES 0.3 %; IMMATURE GRANULOCYTES ABSOLUTE 0.02 10/3/uL (0.0-0.11); LYMPHOCYTES 20.9 %; LYMPHOCYTES ABSOLUTE 1.63 10/3/uL (0.67-4.30); MEAN CORPUS HGB CONC 34.8 g/dL (32.0-36.0); MEAN CORPUSCULAR HEMOGLOB 32.5 pg (26.0-34.0); MEAN CORPUSCULAR VOLUME 93.1 fL (80-100); MEAN PLATELET VOLUME 10.2 fL (9.2-13.0); MONOCYTES 14.5 %; MONOCYTES ABSOLUTE 1.13 10/3/uL (0.21-1.20); NEUTROPHILS 63.5 %; NEUTROPHILS ABSOLUTE 4.95 10/3/uL (2.02-8.40); PLATELET COUNT 218 10/3/uL (150-400); POTASSIUM, SERUM 3.3 MMOL/L (3.5-5.3); RBC DISTRIBUTION WIDTH 12.7 % (12.0-16.0); RED CELL COUNT 4.96 10/6/uL (4.7-6.1); SGOT(AST) 28 U/L (5-40); SGPT(ALT) 90 U/L (5-65); SODIUM, SERUM 142 MMOL/L (135-148); WHITE BLOOD CELLS 7.8 10/3/uL (4.5-10.5)
[2016-08-23 05:20] LABS: BUN (BLOOD UREA NITROGEN) 25 MG/DL (6-23)
[2016-08-23 05:34] LABS: MANUAL DIFF NO %
[2016-08-24 12:22] LABS: BASOPHILS 0.1 %; BASOPHILS ABSOLUTE 0.01 10/3/uL (0.0-0.16); EOSINOPHILS 0.4 %; EOSINOPHILS ABSOLUTE 0.04 10/3/uL (0.0-0.53); HEMATOCRIT 48.3 % (40.0-51.0); HEMOGLOBIN 17.1 g/dL (13.6-17.8); IMMATURE GRANULOCYTES 0.5 %; IMMATURE GRANULOCYTES ABSOLUTE 0.05 10/3/uL (0.0-0.11); LYMPHOCYTES 6.2 %; LYMPHOCYTES ABSOLUTE 0.64 10/3/uL (0.67-4.30); MEAN CORPUS HGB CONC 35.4 g/dL (32.0-36.0); MEAN CORPUSCULAR HEMOGLOB 33.3 pg (26.0-34.0); MEAN PLATELET VOLUME 9.8 fL (9.2-13.0); MONOCYTES 6.5 %; MONOCYTES ABSOLUTE 0.67 10/3/uL (0.21-1.20); NEUTROPHILS 86.3 %; NEUTROPHILS ABSOLUTE 8.97 10/3/uL (2.02-8.40); PLATELET COUNT 223 10/3/uL (150-400); RBC DISTRIBUTION WIDTH 12.6 % (12.0-16.0); RED CELL COUNT 5.14 10/6/uL (4.7-6.1); WHITE BLOOD CELLS 10.4 10/3/uL (4.5-10.5)
[2016-08-24 12:23] LABS: MANUAL DIFF NO %
[2016-08-24 12:30] LABS: ALBUMIN 3.3 G/DL (3.5-5.0); ALKALINE PHOSPHATASE 103 U/L (45-117); BUN (BLOOD UREA NITROGEN) 23 MG/DL (6-23); CALCIUM, SERUM 8.5 MG/DL (8.5-10.4); CHLORIDE, SERUM 104 MMOL/L (96-112); CO2 (CARBON DIOXIDE) 29 MMOL/L (24-34); CREATININE 0.81 MG/DL (0.70-1.30); GFR AFRICAN AMERICAN 131 ML/MIN (>=60); GFR NON AFRICAN AMERICAN 113 ML/MIN (>=60); GLOBULIN 3.2 G/DL (2.5-4.1); GLUCOSE, SERUM 88 MG/DL (60-99); POTASSIUM, SERUM 3.8 MMOL/L (3.5-5.3); SGOT(AST) 21 U/L (5-40); SGPT(ALT) 86 U/L (5-65); SODIUM, SERUM 142 MMOL/L (135-148); TOTAL PROTEIN 6.5 G/DL (6.0-8.5)
[2016-08-24 12:31] LABS: TOTAL BILIRUBIN 0.5 MG/DL (0-1.2)
[2016-08-24 14:41] LABS: HSV DNA TYPE 1 Not Detected (NOTDET); HSV DNA TYPE 2 Not Detected (NOTDET)
[2016-08-25 05:54] LABS: HEMATOCRIT 46.5 % (40.0-51.0); HEMOGLOBIN 16.1 g/dL (13.6-17.8); MEAN CORPUS HGB CONC 34.6 g/dL (32.0-36.0); MEAN CORPUSCULAR HEMOGLOB 32.9 pg (26.0-34.0); MEAN CORPUSCULAR VOLUME 95.1 fL (80-100); MEAN PLATELET VOLUME 10.3 fL (9.2-13.0); PLATELET COUNT 189 10/3/uL (150-400); RBC DISTRIBUTION WIDTH 12.7 % (12.0-16.0); RED CELL COUNT 4.89 10/6/uL (4.7-6.1); WHITE BLOOD CELLS 9.8 10/3/uL (4.5-10.5)
[2016-08-25 06:01] LABS: MANUAL DIFF YES %
[2016-08-25 07:29] LABS: ALBUMIN 2.9 G/DL (3.5-5.0); ALKALINE PHOSPHATASE 96 U/L (45-117); BUN (BLOOD UREA NITROGEN) 19 MG/DL (6-23); CALCIUM, SERUM 8.2 MG/DL (8.5-10.4); CHLORIDE, SERUM 108 MMOL/L (96-112); CO2 (CARBON DIOXIDE) 26 MMOL/L (24-34); CREATININE 0.76 MG/DL (0.70-1.30); GFR AFRICAN AMERICAN 134 ML/MIN (>=60); GFR NON AFRICAN AMERICAN 116 ML/MIN (>=60); GLOBULIN 2.8 G/DL (2.5-4.1); GLUCOSE, SERUM 76 MG/DL (60-99); POTASSIUM, SERUM 3.8 MMOL/L (3.5-5.3); SGOT(AST) 17 U/L (5-40); SGPT(ALT) 66 U/L (5-65); SODIUM, SERUM 143 MMOL/L (135-148); TOTAL BILIRUBIN 0.9 MG/DL (0-1.2); TOTAL PROTEIN 5.7 G/DL (6.0-8.5)
[2016-08-25 07:46] LABS: BAND NEUTROPHILS 3 %; EOSINOPHILS 3 %; EOSINOPHILS ABSOLUTE (CALC) 0.29 10/3/uL (0.0-0.53); LYMPHOCYTES 7 %; LYMPHOCYTES ABSOLUTE (CALC) 0.69 10/3/uL (0.67-4.30); MONOCYTES 8 %; MONOCYTES ABSOLUTE (CALC) 0.78 10/3/uL (0.21-1.20); NEUTROPHILS ABSOLUTE (CALC) 8.04 10/3/uL (2.02-8.40); PLATELET ESTIMATE ADQ (ADEQUATE); RBC MORPHOLOGY NORM (NORMAL); SEGMENTED NEUTROPHIL (0) 79 %; TOTAL NUCLEATED CELLS 100
[2016-08-25 09:33] LABS: JC VIRUS DETECTED (NOTDET)
[2016-08-26 06:56] LABS: A/G RATIO 0.9 (0.7-1.9); ALKALINE PHOSPHATASE 95 U/L (45-117); BUN (BLOOD UREA NITROGEN) 17 MG/DL (6-23); CALCIUM, SERUM 8.7 MG/DL (8.5-10.4); CHLORIDE, SERUM 104 MMOL/L (96-112); CO2 (CARBON DIOXIDE) 23 MMOL/L (24-34); CREATININE 0.64 MG/DL (0.70-1.30); GFR AFRICAN AMERICAN 144 ML/MIN (>=60); GFR NON AFRICAN AMERICAN 124 ML/MIN (>=60); GLOBULIN 3.2 G/DL (2.5-4.1); GLUCOSE, SERUM 77 MG/DL (60-99); POTASSIUM, SERUM 3.7 MMOL/L (3.5-5.3); SGOT(AST) 20 U/L (5-40); SGPT(ALT) 67 U/L (5-65); SODIUM, SERUM 140 MMOL/L (135-148); TOTAL PROTEIN 6.2 G/DL (6.0-8.5)
[2016-08-26 06:57] LABS: TOTAL BILIRUBIN 1.6 MG/DL (0-1.2)
[2016-08-26 07:18] LABS: BASOPHILS 0 %; EOSINOPHILS 1.8 %; EOSINOPHILS ABSOLUTE 0.18 10/3/uL (0.0-0.53); HEMATOCRIT 45.5 % (40.0-51.0); HEMOGLOBIN 16.2 g/dL (13.6-17.8); IMMATURE GRANULOCYTES 0.4 %; IMMATURE GRANULOCYTES ABSOLUTE 0.04 10/3/uL (0.0-0.11); LYMPHOCYTES 13.5 %; LYMPHOCYTES ABSOLUTE 1.37 10/3/uL (0.67-4.30); MEAN CORPUS HGB CONC 35.6 g/dL (32.0-36.0); MEAN CORPUSCULAR HEMOGLOB 32.5 pg (26.0-34.0); MEAN PLATELET VOLUME 10.3 fL (9.2-13.0); MONOCYTES 13.5 %; MONOCYTES ABSOLUTE 1.37 10/3/uL (0.21-1.20); NEUTROPHILS 70.8 %; PLATELET COUNT 226 10/3/uL (150-400); RBC DISTRIBUTION WIDTH 12.8 % (12.0-16.0); RED CELL COUNT 4.99 10/6/uL (4.7-6.1); WHITE BLOOD CELLS 10.2 10/3/uL (4.5-10.5)
[2016-08-26 07:20] LABS: MANUAL DIFF NO %; MEAN CORPUSCULAR VOLUME 91.2 fL (80-100)
[2016-08-27 06:48] LABS: BASOPHILS 0 %; EOSINOPHILS 0 %; HEMATOCRIT 46.4 % (40.0-51.0); HEMOGLOBIN 16.7 g/dL (13.6-17.8); IMMATURE GRANULOCYTES 0.3 %; IMMATURE GRANULOCYTES ABSOLUTE 0.04 10/3/uL (0.0-0.11); LYMPHOCYTES 5.7 %; LYMPHOCYTES ABSOLUTE 0.66 10/3/uL (0.67-4.30); MEAN CORPUSCULAR HEMOGLOB 33.1 pg (26.0-34.0); MEAN CORPUSCULAR VOLUME 91.9 fL (80-100); MEAN PLATELET VOLUME 10.3 fL (9.2-13.0); MONOCYTES 8.2 %; MONOCYTES ABSOLUTE 0.95 10/3/uL (0.21-1.20); NEUTROPHILS 85.8 %; NEUTROPHILS ABSOLUTE 9.94 10/3/uL (2.02-8.40); PLATELET COUNT 230 10/3/uL (150-400); RBC DISTRIBUTION WIDTH 12.3 % (12.0-16.0); RED CELL COUNT 5.05 10/6/uL (4.7-6.1); WHITE BLOOD CELLS 11.6 10/3/uL (4.5-10.5)
[2016-08-27 06:50] LABS: MANUAL DIFF NO %
[2016-08-27 06:56] LABS: A/G RATIO 0.8 (0.7-1.9); ALBUMIN 3.1 G/DL (3.5-5.0); ALKALINE PHOSPHATASE 99 U/L (45-117); BUN (BLOOD UREA NITROGEN) 20 MG/DL (6-23); CALCIUM, SERUM 8.8 MG/DL (8.5-10.4); CHLORIDE, SERUM 102 MMOL/L (96-112); CO2 (CARBON DIOXIDE) 26 MMOL/L (24-34); CREATININE 0.65 MG/DL (0.70-1.30); GFR AFRICAN AMERICAN 143 ML/MIN (>=60); GFR NON AFRICAN AMERICAN 123 ML/MIN (>=60); GLOBULIN 3.7 G/DL (2.5-4.1); POTASSIUM, SERUM 4.2 MMOL/L (3.5-5.3); SGOT(AST) 14 U/L (5-40); SGPT(ALT) 58 U/L (5-65); SODIUM, SERUM 137 MMOL/L (135-148); TOTAL BILIRUBIN 1.8 MG/DL (0-1.2); TOTAL PROTEIN 6.8 G/DL (6.0-8.5)
[2016-08-27 06:57] LABS: GLUCOSE, SERUM 116 MG/DL (60-99)
[2016-08-28 05:20] LABS: BASOPHILS 0.1 %; BASOPHILS ABSOLUTE 0.01 10/3/uL (0.0-0.16); EOSINOPHILS 0 %; HEMATOCRIT 43.8 % (40.0-51.0); HEMOGLOBIN 15.7 g/dL (13.6-17.8); IMMATURE GRANULOCYTES 0.3 %; IMMATURE GRANULOCYTES ABSOLUTE 0.03 10/3/uL (0.0-0.11); LYMPHOCYTES 5.3 %; LYMPHOCYTES ABSOLUTE 0.59 10/3/uL (0.67-4.30); MEAN CORPUS HGB CONC 35.8 g/dL (32.0-36.0); MEAN CORPUSCULAR HEMOGLOB 32.5 pg (26.0-34.0); MEAN CORPUSCULAR VOLUME 90.7 fL (80-100); MEAN PLATELET VOLUME 10.3 fL (9.2-13.0); MONOCYTES 5.6 %; MONOCYTES ABSOLUTE 0.63 10/3/uL (0.21-1.20); NEUTROPHILS 88.7 %; NEUTROPHILS ABSOLUTE 9.97 10/3/uL (2.02-8.40); PLATELET COUNT 229 10/3/uL (150-400); RBC DISTRIBUTION WIDTH 12.6 % (12.0-16.0); RED CELL COUNT 4.83 10/6/uL (4.7-6.1); WHITE BLOOD CELLS 11.2 10/3/uL (4.5-10.5)
[2016-08-28 05:22] LABS: MANUAL DIFF NO %
[2016-08-28 05:41] LABS: A/G RATIO 0.8 (0.7-1.9); ALBUMIN 2.7 G/DL (3.5-5.0); CALCIUM, SERUM 8.5 MG/DL (8.5-10.4); CHLORIDE, SERUM 105 MMOL/L (96-112); CREATININE 0.71 MG/DL (0.70-1.30); GFR AFRICAN AMERICAN 138 ML/MIN (>=60); GFR NON AFRICAN AMERICAN 119 ML/MIN (>=60); GLOBULIN 3.5 G/DL (2.5-4.1); GLUCOSE, SERUM 135 MG/DL (60-99); POTASSIUM, SERUM 4.3 MMOL/L (3.5-5.3); SGOT(AST) 9 U/L (5-40); SGPT(ALT) 46 U/L (5-65); SODIUM, SERUM 138 MMOL/L (135-148); TOTAL PROTEIN 6.2 G/DL (6.0-8.5)
[2016-08-28 05:42] LABS: ALKALINE PHOSPHATASE 86 U/L (45-117); BUN (BLOOD UREA NITROGEN) 24 MG/DL (6-23); CO2 (CARBON DIOXIDE) 21 MMOL/L (24-34); TOTAL BILIRUBIN 0.8 MG/DL (0-1.2)
[2016-08-29 16:14] LABS: BASOPHILS 0.1 %; BASOPHILS ABSOLUTE 0.01 10/3/uL (0.0-0.16); EOSINOPHILS 0 %; HEMATOCRIT 45.4 % (40.0-51.0); IMMATURE GRANULOCYTES 0.4 %; IMMATURE GRANULOCYTES ABSOLUTE 0.05 10/3/uL (0.0-0.11); LYMPHOCYTES 11.9 %; LYMPHOCYTES ABSOLUTE 1.59 10/3/uL (0.67-4.30); MANUAL DIFF NO %; MEAN CORPUS HGB CONC 35.2 g/dL (32.0-36.0); MEAN CORPUSCULAR HEMOGLOB 32.5 pg (26.0-34.0); MEAN CORPUSCULAR VOLUME 92.1 fL (80-100); MONOCYTES 0.9 %; MONOCYTES ABSOLUTE 0.12 10/3/uL (0.21-1.20); NEUTROPHILS 86.7 %; NEUTROPHILS ABSOLUTE 11.61 10/3/uL (2.02-8.40); PLATELET COUNT 199 10/3/uL (150-400); RBC DISTRIBUTION WIDTH 12.7 % (12.0-16.0); RED CELL COUNT 4.93 10/6/uL (4.7-6.1); WHITE BLOOD CELLS 13.4 10/3/uL (4.5-10.5)
[2016-08-29 17:30] LABS: POTASSIUM, SERUM 4.6 MMOL/L (3.5-5.3); SODIUM, SERUM 141 MMOL/L (135-148)
[2016-08-29 17:44] LABS: BUN (BLOOD UREA NITROGEN) 24 MG/DL (6-23); CALCIUM, SERUM 8.1 MG/DL (8.5-10.4); CHLORIDE, SERUM 108 MMOL/L (96-112); CO2 (CARBON DIOXIDE) 22 MMOL/L (24-34); CREATININE 0.66 MG/DL (0.70-1.30); GFR AFRICAN AMERICAN 142 ML/MIN (>=60); GFR NON AFRICAN AMERICAN 123 ML/MIN (>=60); GLUCOSE, SERUM 111 MG/DL (60-99)
[2016-09-01 07:12] LABS: BASOPHILS 0.1 %; BASOPHILS ABSOLUTE 0.01 10/3/uL (0.0-0.16); EOSINOPHILS ABSOLUTE 0.14 10/3/uL (0.0-0.53); HEMATOCRIT 43.1 % (40.0-51.0); HEMOGLOBIN 15.2 g/dL (13.6-17.8); IMMATURE GRANULOCYTES 0.3 %; IMMATURE GRANULOCYTES ABSOLUTE 0.02 10/3/uL (0.0-0.11); MEAN CORPUS HGB CONC 35.3 g/dL (32.0-36.0); MEAN CORPUSCULAR HEMOGLOB 32.6 pg (26.0-34.0); MEAN CORPUSCULAR VOLUME 92.5 fL (80-100); MEAN PLATELET VOLUME 10.4 fL (9.2-13.0); MONOCYTES 9.5 %; MONOCYTES ABSOLUTE 0.68 10/3/uL (0.21-1.20); NEUTROPHILS 74.1 %; NEUTROPHILS ABSOLUTE 5.29 10/3/uL (2.02-8.40); PLATELET COUNT 171 10/3/uL (150-400); RBC DISTRIBUTION WIDTH 12.7 % (12.0-16.0); RED CELL COUNT 4.66 10/6/uL (4.7-6.1)
[2016-09-01 07:17] LABS: MANUAL DIFF NO %; WHITE BLOOD CELLS 7.1 10/3/uL (4.5-10.5)
[2016-09-02 07:50] LABS: BASOPHILS 0.1 %; BASOPHILS ABSOLUTE 0.01 10/3/uL (0.0-0.16); EOSINOPHILS 0.5 %; EOSINOPHILS ABSOLUTE 0.08 10/3/uL (0.0-0.53); HEMOGLOBIN 17.4 g/dL (13.6-17.8); IMMATURE GRANULOCYTES 0.4 %; IMMATURE GRANULOCYTES ABSOLUTE 0.06 10/3/uL (0.0-0.11); LYMPHOCYTES 6.8 %; LYMPHOCYTES ABSOLUTE 1.09 10/3/uL (0.67-4.30); MANUAL DIFF NO %; MEAN CORPUS HGB CONC 35.5 g/dL (32.0-36.0); MEAN CORPUSCULAR HEMOGLOB 32.7 pg (26.0-34.0); MEAN CORPUSCULAR VOLUME 92.1 fL (80-100); MEAN PLATELET VOLUME 9.8 fL (9.2-13.0); MONOCYTES 3.8 %; MONOCYTES ABSOLUTE 0.62 10/3/uL (0.21-1.20); NEUTROPHILS 88.4 %; NEUTROPHILS ABSOLUTE 14.27 10/3/uL (2.02-8.40); PLATELET COUNT 200 10/3/uL (150-400); RBC DISTRIBUTION WIDTH 12.9 % (12.0-16.0); RED CELL COUNT 5.32 10/6/uL (4.7-6.1); WHITE BLOOD CELLS 16.1 10/3/uL (4.5-10.5)
[2016-09-02 08:01] LABS: CALCIUM, SERUM 8.6 MG/DL (8.5-10.4); CHLORIDE, SERUM 103 MMOL/L (96-112); CREATININE 0.89 MG/DL (0.70-1.30); GFR AFRICAN AMERICAN 126 ML/MIN (>=60); GFR NON AFRICAN AMERICAN 108 ML/MIN (>=60); POTASSIUM, SERUM 3.9 MMOL/L (3.5-5.3); SODIUM, SERUM 141 MMOL/L (135-148)
[2016-09-02 08:03] LABS: BUN (BLOOD UREA NITROGEN) 18 MG/DL (6-23); CO2 (CARBON DIOXIDE) 27 MMOL/L (24-34); GLUCOSE, SERUM 83 MG/DL (60-99)
[2016-09-02 10:32] LABS: BASOPHILS 0.1 %; BASOPHILS ABSOLUTE 0.02 10/3/uL (0.0-0.16); EOSINOPHILS 0.3 %; EOSINOPHILS ABSOLUTE 0.05 10/3/uL (0.0-0.53); HEMATOCRIT 51.4 % (40.0-51.0); IMMATURE GRANULOCYTES 0.3 %; IMMATURE GRANULOCYTES ABSOLUTE 0.06 10/3/uL (0.0-0.11); LYMPHOCYTES 6.9 %; LYMPHOCYTES ABSOLUTE 1.23 10/3/uL (0.67-4.30); MEAN CORPUSCULAR VOLUME 94.1 fL (80-100); MONOCYTES 4.5 %; NEUTROPHILS 87.9 %; NEUTROPHILS ABSOLUTE 15.67 10/3/uL (2.02-8.40); PLATELET COUNT 186 10/3/uL (150-400); RED CELL COUNT 5.46 10/6/uL (4.7-6.1); WHITE BLOOD CELLS 17.8 10/3/uL (4.5-10.5)
[2016-09-02 10:33] LABS: MANUAL DIFF NO %
[2016-09-03 05:59] LABS: BASOPHILS 0.1 %; BASOPHILS ABSOLUTE 0.01 10/3/uL (0.0-0.16); EOSINOPHILS 0.4 %; EOSINOPHILS ABSOLUTE 0.07 10/3/uL (0.0-0.53); HEMATOCRIT 49.2 % (40.0-51.0); HEMOGLOBIN 17.2 g/dL (13.6-17.8); IMMATURE GRANULOCYTES 0.3 %; IMMATURE GRANULOCYTES ABSOLUTE 0.05 10/3/uL (0.0-0.11); LYMPHOCYTES 3.6 %; LYMPHOCYTES ABSOLUTE 0.62 10/3/uL (0.67-4.30); MEAN CORPUSCULAR VOLUME 94.3 fL (80-100); MEAN PLATELET VOLUME 9.8 fL (9.2-13.0); MONOCYTES 8.3 %; MONOCYTES ABSOLUTE 1.42 10/3/uL (0.21-1.20); NEUTROPHILS 87.3 %; NEUTROPHILS ABSOLUTE 14.97 10/3/uL (2.02-8.40); PLATELET COUNT 176 10/3/uL (150-400); RBC DISTRIBUTION WIDTH 12.7 % (12.0-16.0); RED CELL COUNT 5.22 10/6/uL (4.7-6.1); WHITE BLOOD CELLS 17.1 10/3/uL (4.5-10.5)
[2016-09-03 06:16] LABS: A/G RATIO 0.8 (0.7-1.9); ALBUMIN 2.8 G/DL (3.5-5.0); ALKALINE PHOSPHATASE 90 U/L (45-117); BUN (BLOOD UREA NITROGEN) 20 MG/DL (6-23); CHLORIDE, SERUM 105 MMOL/L (96-112); CO2 (CARBON DIOXIDE) 23 MMOL/L (24-34); CREATININE 0.67 MG/DL (0.70-1.30); GFR AFRICAN AMERICAN 141 ML/MIN (>=60); GFR NON AFRICAN AMERICAN 122 ML/MIN (>=60); GLOBULIN 3.6 G/DL (2.5-4.1); POTASSIUM, SERUM 3.9 MMOL/L (3.5-5.3); SGOT(AST) 20 U/L (5-40); SGPT(ALT) 85 U/L (5-65); SODIUM, SERUM 139 MMOL/L (135-148); TOTAL BILIRUBIN 1.1 MG/DL (0-1.2); TOTAL PROTEIN 6.4 G/DL (6.0-8.5)
[2016-09-03 06:17] LABS: GLUCOSE, SERUM 108 MG/DL (60-99); MANUAL DIFF NO %
[2016-09-04 06:20] LABS: BASOPHILS 0.1 %; BASOPHILS ABSOLUTE 0.01 10/3/uL (0.0-0.16); EOSINOPHILS 0 %; HEMOGLOBIN 15.6 g/dL (13.6-17.8); IMMATURE GRANULOCYTES 0.2 %; IMMATURE GRANULOCYTES ABSOLUTE 0.02 10/3/uL (0.0-0.11); LYMPHOCYTES 2.6 %; LYMPHOCYTES ABSOLUTE 0.27 10/3/uL (0.67-4.30); MEAN CORPUS HGB CONC 35.5 g/dL (32.0-36.0); MEAN CORPUSCULAR HEMOGLOB 33.1 pg (26.0-34.0); MEAN PLATELET VOLUME 9.8 fL (9.2-13.0); MONOCYTES 3.2 %; MONOCYTES ABSOLUTE 0.33 10/3/uL (0.21-1.20); NEUTROPHILS 93.9 %; NEUTROPHILS ABSOLUTE 9.73 10/3/uL (2.02-8.40); PLATELET COUNT 171 10/3/uL (150-400); RBC DISTRIBUTION WIDTH 12.5 % (12.0-16.0); RED CELL COUNT 4.72 10/6/uL (4.7-6.1); WHITE BLOOD CELLS 10.4 10/3/uL (4.5-10.5)
[2016-09-04 06:27] LABS: BUN (BLOOD UREA NITROGEN) 21 MG/DL (6-23); CALCIUM, SERUM 9.2 MG/DL (8.5-10.4); CHLORIDE, SERUM 104 MMOL/L (96-112); CO2 (CARBON DIOXIDE) 24 MMOL/L (24-34); CREATININE 0.62 MG/DL (0.70-1.30); GFR AFRICAN AMERICAN 146 ML/MIN (>=60); GFR NON AFRICAN AMERICAN 126 ML/MIN (>=60); POTASSIUM, SERUM 3.6 MMOL/L (3.5-5.3); SODIUM, SERUM 138 MMOL/L (135-148)
[2016-09-04 06:29] LABS: HEMATOCRIT 43.9 % (40.0-51.0); MANUAL DIFF NO %
[2016-09-04 06:32] LABS: INTERNATIONAL NORMAL RATI 1.2 UNITS (-); PARTIAL THROMBO TIME 30.3 SEC (22.5-37.2); PROTIME (NOT ORD) 15.4 SEC (12.0-14.5)
[2016-09-04 06:33] LABS: GLUCOSE, SERUM 136 MG/DL (60-99)
[2016-09-05 01:55] LABS: JC VIRUS Not Detected (NOTDET); SPECIMEN SOURCE Serum (())
[2016-09-06 06:36] LABS: BASOPHILS 0 %; EOSINOPHILS 0 %; HEMATOCRIT 37.7 % (40.0-51.0); HEMOGLOBIN 13.1 g/dL (13.6-17.8); IMMATURE GRANULOCYTES 0.2 %; IMMATURE GRANULOCYTES ABSOLUTE 0.01 10/3/uL (0.0-0.11); LYMPHOCYTES 6.3 %; LYMPHOCYTES ABSOLUTE 0.36 10/3/uL (0.67-4.30); MANUAL DIFF NO %; MEAN CORPUS HGB CONC 34.7 g/dL (32.0-36.0); MEAN CORPUSCULAR HEMOGLOB 32.6 pg (26.0-34.0); MEAN CORPUSCULAR VOLUME 93.8 fL (80-100); MEAN PLATELET VOLUME 9.5 fL (9.2-13.0); MONOCYTES ABSOLUTE 0.57 10/3/uL (0.21-1.20); NEUTROPHILS 83.5 %; NEUTROPHILS ABSOLUTE 4.78 10/3/uL (2.02-8.40); PLATELET COUNT 161 10/3/uL (150-400); RBC DISTRIBUTION WIDTH 12.6 % (12.0-16.0); RED CELL COUNT 4.02 10/6/uL (4.7-6.1); WHITE BLOOD CELLS 5.7 10/3/uL (4.5-10.5)
[2016-09-06 06:54] LABS: PREALBUMIN 15.7 MG/DL (17.0-43.0)
[2016-09-07 05:36] LABS: BASOPHILS 0.2 %; BASOPHILS ABSOLUTE 0.01 10/3/uL (0.0-0.16); EOSINOPHILS 0 %; HEMOGLOBIN 13.1 g/dL (13.6-17.8); IMMATURE GRANULOCYTES 0.2 %; IMMATURE GRANULOCYTES ABSOLUTE 0.01 10/3/uL (0.0-0.11); LYMPHOCYTES 5.5 %; LYMPHOCYTES ABSOLUTE 0.28 10/3/uL (0.67-4.30); MEAN CORPUS HGB CONC 34.5 g/dL (32.0-36.0); MEAN CORPUSCULAR HEMOGLOB 31.6 pg (26.0-34.0); MEAN CORPUSCULAR VOLUME 91.6 fL (80-100); MEAN PLATELET VOLUME 9.6 fL (9.2-13.0); MONOCYTES 9.8 %; NEUTROPHILS 84.3 %; NEUTROPHILS ABSOLUTE 4.29 10/3/uL (2.02-8.40); PLATELET COUNT 161 10/3/uL (150-400); RBC DISTRIBUTION WIDTH 12.7 % (12.0-16.0); RED CELL COUNT 4.15 10/6/uL (4.7-6.1); WHITE BLOOD CELLS 5.1 10/3/uL (4.5-10.5)
[2016-09-07 05:40] LABS: MANUAL DIFF NO %
[2016-09-07 05:41] LABS: INTERNATIONAL NORMAL RATI 1.2 UNITS (-); PROTIME (NOT ORD) 15.5 SEC (12.0-14.5)
[2016-09-07 05:48] LABS: CHLORIDE, SERUM 109 MMOL/L (96-112); CO2 (CARBON DIOXIDE) 26 MMOL/L (24-34); GFR AFRICAN AMERICAN 148 ML/MIN (>=60); GFR NON AFRICAN AMERICAN 128 ML/MIN (>=60); POTASSIUM, SERUM 3.5 MMOL/L (3.5-5.3); SODIUM, SERUM 142 MMOL/L (135-148)
[2016-09-07 05:53] LABS: BUN (BLOOD UREA NITROGEN) 14 MG/DL (6-23); CALCIUM, SERUM 8.2 MG/DL (8.5-10.4); GLUCOSE, SERUM 94 MG/DL (60-99)
[2016-09-09 06:36] LABS: CALCIUM, SERUM 7.8 MG/DL (8.5-10.4); CHLORIDE, SERUM 107 MMOL/L (96-112); CO2 (CARBON DIOXIDE) 27 MMOL/L (24-34); CREATININE 0.59 MG/DL (0.70-1.30); GFR AFRICAN AMERICAN 149 ML/MIN (>=60); GFR NON AFRICAN AMERICAN 128 ML/MIN (>=60); GLUCOSE, SERUM 80 MG/DL (60-99); POTASSIUM, SERUM 3.6 MMOL/L (3.5-5.3); SODIUM, SERUM 140 MMOL/L (135-148)
[2016-09-09 06:37] LABS: ALBUMIN 2.2 G/DL (3.5-5.0); BUN (BLOOD UREA NITROGEN) 19 MG/DL (6-23); PHOSPHORUS, SERUM 2.5 MG/DL (2.5-4.5)
[2016-09-12 22:28] LABS: CREATININE 0.5 MG/DL (0.70-1.30)
[2016-09-13 06:55] LABS: BASOPHILS 0 %; EOSINOPHILS 1.2 %; EOSINOPHILS ABSOLUTE 0.07 10/3/uL (0.0-0.53); HEMATOCRIT 40.2 % (40.0-51.0); HEMOGLOBIN 14.3 g/dL (13.6-17.8); IMMATURE GRANULOCYTES 0.8 %; IMMATURE GRANULOCYTES ABSOLUTE 0.05 10/3/uL (0.0-0.11); LYMPHOCYTES 18.1 %; LYMPHOCYTES ABSOLUTE 1.07 10/3/uL (0.67-4.30); MANUAL DIFF NO %; MEAN CORPUS HGB CONC 35.6 g/dL (32.0-36.0); MEAN CORPUSCULAR HEMOGLOB 33.2 pg (26.0-34.0); MEAN CORPUSCULAR VOLUME 93.3 fL (80-100); MEAN PLATELET VOLUME 9.5 fL (9.2-13.0); MONOCYTES 15.5 %; MONOCYTES ABSOLUTE 0.92 10/3/uL (0.21-1.20); NEUTROPHILS 64.4 %; NEUTROPHILS ABSOLUTE 3.81 10/3/uL (2.02-8.40); PLATELET COUNT 190 10/3/uL (150-400); RBC DISTRIBUTION WIDTH 12.7 % (12.0-16.0); RED CELL COUNT 4.31 10/6/uL (4.7-6.1); WHITE BLOOD CELLS 5.9 10/3/uL (4.5-10.5)
[2016-09-13 07:07] LABS: CALCIUM, SERUM 8.2 MG/DL (8.5-10.4); CHLORIDE, SERUM 105 MMOL/L (96-112); CO2 (CARBON DIOXIDE) 27 MMOL/L (24-34); CREATININE 0.53 MG/DL (0.70-1.30); GFR AFRICAN AMERICAN 156 ML/MIN (>=60); GFR NON AFRICAN AMERICAN 134 ML/MIN (>=60); POTASSIUM, SERUM 3.8 MMOL/L (3.5-5.3); SODIUM, SERUM 140 MMOL/L (135-148)
[2016-09-13 07:08] LABS: BUN (BLOOD UREA NITROGEN) 15 MG/DL (6-23); GLUCOSE, SERUM 104 MG/DL (60-99)
[2016-09-14 07:00] LABS: BUN (BLOOD UREA NITROGEN) 18 MG/DL (6-23); CALCIUM, SERUM 8.4 MG/DL (8.5-10.4); CHLORIDE, SERUM 105 MMOL/L (96-112); CO2 (CARBON DIOXIDE) 28 MMOL/L (24-34); CREATININE 0.62 MG/DL (0.70-1.30); GFR AFRICAN AMERICAN 146 ML/MIN (>=60); GFR NON AFRICAN AMERICAN 126 ML/MIN (>=60); GLUCOSE, SERUM 85 MG/DL (60-99); POTASSIUM, SERUM 3.8 MMOL/L (3.5-5.3); SODIUM, SERUM 142 MMOL/L (135-148)
[2016-09-14 15:38] LABS: ASCORBIC ACID (UR NOT ORDER) 20 (NEG); BILIRUBIN, URINE NEGATIVE (NEG); KETONE, URINE NEGATIVE (NEG); LEUKOCYTE ESTERASE(NOT OR SMALL (NEG); WBC (NOT ORDERED) (RFLEX) 14 (0-5)
[2016-09-15 04:16] LABS: BASOPHILS 0.1 %; BASOPHILS ABSOLUTE 0.01 10/3/uL (0.0-0.16); EOSINOPHILS 0.7 %; EOSINOPHILS ABSOLUTE 0.05 10/3/uL (0.0-0.53); HEMATOCRIT 38.3 % (40.0-51.0); HEMOGLOBIN 13.5 g/dL (13.6-17.8); IMMATURE GRANULOCYTES 0.6 %; IMMATURE GRANULOCYTES ABSOLUTE 0.04 10/3/uL (0.0-0.11); LYMPHOCYTES 19.6 %; LYMPHOCYTES ABSOLUTE 1.34 10/3/uL (0.67-4.30); MEAN CORPUS HGB CONC 35.2 g/dL (32.0-36.0); MEAN CORPUSCULAR HEMOGLOB 32.7 pg (26.0-34.0); MEAN CORPUSCULAR VOLUME 92.7 fL (80-100); MEAN PLATELET VOLUME 9.8 fL (9.2-13.0); MONOCYTES 16.1 %; NEUTROPHILS 62.9 %; NEUTROPHILS ABSOLUTE 4.31 10/3/uL (2.02-8.40); PLATELET COUNT 231 10/3/uL (150-400); RBC DISTRIBUTION WIDTH 13.2 % (12.0-16.0); RED CELL COUNT 4.13 10/6/uL (4.7-6.1); WHITE BLOOD CELLS 6.9 10/3/uL (4.5-10.5)
[2016-09-15 04:26] LABS: MANUAL DIFF NO %
[2016-09-15 04:27] LABS: BUN (BLOOD UREA NITROGEN) 20 MG/DL (6-23); CALCIUM, SERUM 8.3 MG/DL (8.5-10.4); CHLORIDE, SERUM 106 MMOL/L (96-112); CO2 (CARBON DIOXIDE) 27 MMOL/L (24-34); CREATININE 0.48 MG/DL (0.70-1.30); GFR AFRICAN AMERICAN 162 ML/MIN (>=60); GFR NON AFRICAN AMERICAN 140 ML/MIN (>=60); GLUCOSE, SERUM 91 MG/DL (60-99); SODIUM, SERUM 142 MMOL/L (135-148)
[2016-09-16 08:45] LABS: BUN (BLOOD UREA NITROGEN) 21 MG/DL (6-23); CALCIUM, SERUM 8.6 MG/DL (8.5-10.4); CHLORIDE, SERUM 106 MMOL/L (96-112); CO2 (CARBON DIOXIDE) 30 MMOL/L (24-34); CREATININE 0.66 MG/DL (0.70-1.30); GFR AFRICAN AMERICAN 142 ML/MIN (>=60); GFR NON AFRICAN AMERICAN 123 ML/MIN (>=60); GLUCOSE, SERUM 99 MG/DL (60-99); POTASSIUM, SERUM 3.8 MMOL/L (3.5-5.3); SODIUM, SERUM 141 MMOL/L (135-148)
[2016-09-17 08:19] LABS: BUN (BLOOD UREA NITROGEN) 18 MG/DL (6-23); CALCIUM, SERUM 8.6 MG/DL (8.5-10.4); CHLORIDE, SERUM 108 MMOL/L (96-112); CREATININE 0.59 MG/DL (0.70-1.30); GFR AFRICAN AMERICAN 149 ML/MIN (>=60); GFR NON AFRICAN AMERICAN 128 ML/MIN (>=60); GLUCOSE, SERUM 92 MG/DL (60-99); POTASSIUM, SERUM 4.2 MMOL/L (3.5-5.3); SODIUM, SERUM 142 MMOL/L (135-148)
[2016-09-17 08:20] LABS: CO2 (CARBON DIOXIDE) 25 MMOL/L (24-34)
[2016-09-18 05:17] LABS: BUN (BLOOD UREA NITROGEN) 16 MG/DL (6-23); CALCIUM, SERUM 8.7 MG/DL (8.5-10.4); CHLORIDE, SERUM 105 MMOL/L (96-112); CO2 (CARBON DIOXIDE) 29 MMOL/L (24-34); CREATININE 0.54 MG/DL (0.70-1.30); GFR AFRICAN AMERICAN 154 ML/MIN (>=60); GFR NON AFRICAN AMERICAN 133 ML/MIN (>=60); GLUCOSE, SERUM 89 MG/DL (60-99); POTASSIUM, SERUM 3.9 MMOL/L (3.5-5.3); SODIUM, SERUM 144 MMOL/L (135-148)
[2016-09-19 07:17] LABS: BASOPHILS 0.1 %; BASOPHILS ABSOLUTE 0.01 10/3/uL (0.0-0.16); EOSINOPHILS 0.7 %; EOSINOPHILS ABSOLUTE 0.05 10/3/uL (0.0-0.53); HEMATOCRIT 41.4 % (40.0-51.0); HEMOGLOBIN 14.4 g/dL (13.6-17.8); IMMATURE GRANULOCYTES 0.6 %; IMMATURE GRANULOCYTES ABSOLUTE 0.04 10/3/uL (0.0-0.11); LYMPHOCYTES 16.4 %; LYMPHOCYTES ABSOLUTE 1.16 10/3/uL (0.67-4.30); MANUAL DIFF NO %; MEAN CORPUS HGB CONC 34.8 g/dL (32.0-36.0); MEAN CORPUSCULAR VOLUME 94.7 fL (80-100); MEAN PLATELET VOLUME 9.6 fL (9.2-13.0); MONOCYTES 9.5 %; MONOCYTES ABSOLUTE 0.67 10/3/uL (0.21-1.20); NEUTROPHILS 72.7 %; NEUTROPHILS ABSOLUTE 5.13 10/3/uL (2.02-8.40); PLATELET COUNT 243 10/3/uL (150-400); RBC DISTRIBUTION WIDTH 13.3 % (12.0-16.0); RED CELL COUNT 4.37 10/6/uL (4.7-6.1); WHITE BLOOD CELLS 7.1 10/3/uL (4.5-10.5)
[2016-09-19 07:44] LABS: BUN (BLOOD UREA NITROGEN) 16 MG/DL (6-23); CHLORIDE, SERUM 109 MMOL/L (96-112); CO2 (CARBON DIOXIDE) 27 MMOL/L (24-34); CREATININE 0.48 MG/DL (0.70-1.30); GFR AFRICAN AMERICAN 162 ML/MIN (>=60); GFR NON AFRICAN AMERICAN 140 ML/MIN (>=60); GLUCOSE, SERUM 84 MG/DL (60-99); POTASSIUM, SERUM 3.8 MMOL/L (3.5-5.3); SODIUM, SERUM 144 MMOL/L (135-148)
== END 2016-09-22 15:08 | DRG 57 ==
LOC: ER 16:04 → 5NO 20:12
PROVIDERS: Hospitalist; Internal Medicine; Nurse Practitioner Family; Physician Assistant; Psychiatry & Neurology Neurology
PROC: 009U3ZX Drainage of Spinal Canal, Percutaneous Approach, Diagnostic (ICD-10-PCS; principal; 2016-08-21)
PROC: 0DH63UZ Insertion of Feeding Device into Stomach, Percutaneous Approach (ICD-10-PCS; 2016-09-04)
PROC: 3E0G76Z Introduction of Nutritional Substance into Upper GI, Via Natural or Artificial Opening (ICD-10-PCS; 2016-09-06)
PROC: 0DH64UZ Insertion of Feeding Device into Stomach, Percutaneous Endoscopic Approach (ICD-10-PCS; 2016-09-07)
DX: A81.2 Progressive multifocal leukoencephalopathy (principal); G35 Multiple sclerosis; E44.0 Moderate protein-calorie malnutrition; K26.9 Duodenal ulcer, unspecified as acute or chronic, without hemorrhage or perforation; J98.11 Atelectasis; N39.0 Urinary tract infection, site not specified; E55.9 Vitamin D deficiency, unspecified; R47.1 Dysarthria and anarthria; R13.10 Dysphagia, unspecified; M62.3 Immobility syndrome (paraplegic); B96.20 Unspecified Escherichia coli [E. coli] as the cause of diseases classified elsewhere; G40.909 Epilepsy, unspecified, not intractable, without status epilepticus
CPT/HCPCS: 62270; 70450; 70470; 70553; 71010; 74000; 74150; 77003; 80048; 80053; 80069; 81001; 82272; 82306; 82945; 82962; 83735; 83880; 84134; 84145; 84157; 84443; 84999; 85025; 85610; 85730; 87077; 87086; 87186; 87389; 87529; 87529-59; 87798; 88112; 89051; 92610-GN; 93005; 95816; 97110-GO; 97110-GP; 97162-GP; 97164-GP; 97167-GO; 97168-GO; 97530-GP; 99285; A9270-GY; A9577; C9113; G8978-CM-GP; G8979-CL-GP; J0690; J1170; J1568; J1953; J2250; J2405; J2930; J3010; Q9967

== ENCOUNTER 2016-11-26 19:47 | Inpatient (IN) | payer BC, MEDICARE ==
--- NOTE | ~2016-11-26 | CN ---
Consultation Report [facility] [address] [place]. [address] NAME: SUDARSHAN MIGUEL : [birth year] STATUS : ADM IN [facility]#: [id number] AGE: 36 ADM/REG DATE : 11/26/16 MR#: [id number] REPORT SERV DATE: 11/30/16 DICTATED BY: CHRISTIANO VALLADARES DATE: 11/29/16 REPORT STATUS : Draft TRANSCRIBED BY: MODL DATE: 11/29/16 DATE OF CONSULTATION: REASON FOR CONSULTATION: Dysphagia with PEG tube replacement. HISTORY OF PRESENT ILLNESS: Mr. Lezama is a 36-year-old man admitted with sepsis with a known history of multiple sclerosis who had an attempted PEG tube placed in September of this year which was unsuccessful endoscopically, and he subsequently had a tube placed via surgery by Dr. Lai in September. Today, it was noted that the tube had dislodge itself. Of note, the tube is a 14-Syrian tube. The patient currently is very poorly verbal and is unable to give any substantial history. Of note, I attempted to replace the tube with a 14- Syrian balloon replacement PEG and was unable to access the tract. The patient's past medical history otherwise includes multiple sclerosis with multiple complications that are fairly advanced. He is admitted with sepsis. PAST SURGICAL HISTORY: Includes PEG tube placement. ALLERGIES: NO KNOWN DRUG ALLERGIES. MEDICATIONS: Reviewed, and of note, the patient currently is on Ancef 2 g q.8 hours. SOCIAL HISTORY: He is . FAMILY HISTORY: Noncontributory. REVIEW OF SYSTEMS: Unable to obtain a review of systems secondary to patient's mental status. PHYSICAL EXAMINATION: VITAL SIGNS: His physical exam currently reveals a temperature of 99.2, heart rate of 80, blood pressure 105/76. GENERAL: The patient is lying in bed, in no apparent distress. ABDOMEN: Soft and benign. There is noted to be a PEG tract in his anterior abdomen that was small, I was unable to interpret this through. CARDIOVASCULAR: Regular rate and rhythm. LUNGS: Clear. LABORATORY DATA: Laboratory evaluation was notable for a white blood cell count of 15. His INR was 1.2. His platelets were 111. IMPRESSION: 1. Multiple sclerosis with dysphagia. 2. Dislodgement of PEG tube. We will tentatively plan an attempt at endoscopic replacement which may be feasible at this Consultation Report [facility] [address] [address] NAME: SUDARSHAN MIGUEL : [birth year] STATUS : ADM IN [facility]#: [id number] AGE: 36 ADM/REG DATE : 11/26/16 MR#: [id number] REPORT SERV DATE: 11/30/16 DICTATED BY: CHRISTIANO VALLADARES DATE: 11/29/16 REPORT STATUS : Draft TRANSCRIBED BY: MODL DATE: 11/29/16 time given the tract has been identified internally and externally and will allow us to place a nonballoon-type PEG in this patient. The risks of this procedure were discussed with the patient's including the risks of bleeding, infection, perforation, adverse reaction to sedatives, missed lesion, missed diagnosis, explained any complication could require surgery, and she is agreeable, and the procedure is tentatively planned for the following day. Thank for allowing me to evaluate the patient. Please do not hesitate to contact me should you have concerns or questions. GO/MODL Christiano Valladares MD / [id number] CC: Alice Patel M.D. Stuart Carrington M.D. Harish Salazar M.D.
--- NOTE | ~2016-11-26 | IDS ---
Interim Discharge Summary [facility] [address] [place]. [address] NAME: SUDARSHAN MIGUEL : [birth year] STATUS : ADM IN [facility]#: [id number] AGE: 36 ADM/REG DATE : 11/26/16 MR#: [id number] REPORT SERV DATE: 12/01/16 DICTATED BY: PRESLEY SALAZAR DATE: 12/01/16 REPORT STATUS : Draft TRANSCRIBED BY: MODL DATE: 12/01/16 ADMISSION DATE: 11/26/2016 DISCHARGE DATE: 12/01/2016 Date of discharge from the ICU 12/01/2016. DISCHARGE DIAGNOSES: 1. Multiple sclerosis. 2. Seizure disorder. 3. Dysphagia. 4. Dysphonia. 5. Severe debilitation. In the past, he had sepsis and septic shock from an ESBL E coli bacteria, treated with Merrem. He is currently off Levophed. Seizure activities under control. He had acute respiratory failure post and is currently off the ventilator. He is awake, alert, responsive at this time. His vital signs are 106/63, pulse 68, temperature 98.8, sat 96. Heart rate is regular. His procalcitonin is 1.38 and his antibiotics have been stopped. He was on Ancef q.8., Florastor, he was taking Keppra 750 mg IV q.12. He is on subcu Lovenox and vitamin D. CBC shows an H and H of 12.3 and 35.2, white count 5300, platelet count 131,000. Chest x-ray from 11/28/2016 shows the following, slight retraction of right internal jugular venous catheter, low lung volumes with some crowding of the pulmonary vasculature and bibasilar atelectasis. RP/MODL Presley Salazar M.D. / [id number] CC: Danyel Macdonald M.D.
--- NOTE | ~2016-11-26 | DS ---
Discharge Summary [facility] [address] [place]. [address] NAME: SUDARSHAN MIGUEL : [birth year] STATUS : DIS IN PAT#: [id number] AGE: 36 ADM/REG DATE : 11/26/16 MR#: [id number] REPORT SERV DATE: 12/08/16 DICTATED BY: DATE: REPORT STATUS : Draft TRANSCRIBED BY: MODL DATE: 12/07/16 ADMISSION DATE: 11/26/2016 DISCHARGE DATE: 12/07/2016 The patient was admitted to the [facility], Dr. Alice Patel and discharged from the Hospitalist Service, Dr. El Lewis. CONSULTANTS: Included Gastroenterology, Dr. Crews, and Infectious Disease, Dr. Elmer Samuel. DISCHARGE DIAGNOSES: 1. Relapsing remitting severe multiple sclerosis - recently treated with high-dose steroids and IVIG. To resume Copaxone in the outpatient setting. 2. Seizure activity with history of seizure disorder - to discharge on increased dose of Keppra. 3. Oropharyngeal dysphagia - with a PEG tube, for nocturnal tube feeds. Also able to eat a mechanical soft diet with chopped meats and gravy and thin liquids with aspiration precautions. 4. Severe weakness and debility - refusing SNF placement, for additional physical therapy outpatient. 5. Recent history of extended spectrum beta-lactamase Escherichia coli urinary tract infection. 6. Current Proteus urinary tract infection. 7. Proteus bacteremia due to urinary tract infection - to complete 14-day total antibiotic course as an outpatient. 8. Sepsis present at admission - resolved. 9. Acute kidney injury present at admission - resolved. IMAGIN. Portable chest x-ray 11/26/2016 for sepsis shows increased markings in the right lung base. 2. Brain CT without contrast 11/26/2016 for seizure shows expected changes of moderate to heavy burden MS with [id number] generalized atrophy advanced for age suggesting a relapsing remitting pattern. 3. Portable chest x-ray, 11/27/2016 for central line placement with tip projecting over the atrial caval junction in good position. Low lung volumes with some crowding of the pulmonary vasculature and bibasilar atelectasis. 4. Swallow study 12/05/2016. No aspiration. PERTINENT LABS: Procalcitonin at admission 72, 0.15 at discharge. Creatinine at admission 1.05, 0.5 at discharge. Liver enzymes normal. Initial lactate 4.1, down trending to 1.2 during admission. Initial white blood cell count 24.1, 6.8 at discharge. Hemoglobin values stable between 11 and 13. Platelet count normal. Coagulation studies normal. Urinalysis demonstrated hazy urine with large blood, large leukocyte esterase, 76 red blood cells, 70 white blood cells with clumps and many bacteria. Blood cultures, 11/26/2016, 2/2 positive for Proteus, resistant to fluoroquinolones. Urine culture 11/26/2016, positive for Proteus Discharge Summary [facility] [address] [place]. [address] NAME: SUDARSHAN MIGUEL : [birth year] STATUS : DIS IN PAT#: [id number] AGE: 36 ADM/REG DATE : 11/26/16 MR#: [id number] REPORT SERV DATE: 12/08/16 DICTATED BY: DATE: REPORT STATUS : Draft TRANSCRIBED BY: MODL DATE: 12/07/16 with the same susceptibility patterns as blood. BRIEF HISTORY: For full details, please see the previously dictated history of present illness by Dr. Alice Patel. This is a 36-year-old white male with advanced multiple sclerosis, followed by Dr. Megan Kirk at [facility]. The patient was admitted to this hospital in August for declining status of MS and treated with IVIG and high-dose IV steroids. During that concern, there was some concern for PML as lumbar puncture was done, and initially was positive for RAFAEL virus, but CSF titer was negative. RAFAEL virus was ruled out at admission, and patient has been treated since then for severe multiple sclerosis. He had a recent ESBL E. coli and was treated for that. He also had placement of a PEG tube for oropharyngeal dysphagia, and then was transferred to [facility] for additional physical rehabilitation. He developed high fever at [facility] on 11/26/2016 and was noted to have seizure activity. He was given 4 mg of IV Ativan and transported to the emergency department at [facility] where he was found to be lethargic, hypotensive, febrile, and in septic shock. Blood cultures and urine cultures were obtained, and the patient was admitted to the intensive care unit on empiric vancomycin and meropenem. He was also placed on IV Keppra at higher dose than previously. HOSPITAL COURSE: For full details, please reference interim discharge summary by Dr. Harish Salazar on 12/01/2016 for dates of service 11/26/2016 through 12/01/2016. The patient briefly required Levophed for septic shock. His urine cultures and blood cultures demonstrated Proteus. His meropenem and vancomycin were discontinued and instead was placed on Ancef. He was able to be transferred to the floor on 12/02/2016 and was cared for by Dr. Mahsa Deleon on 12/02/2016, 12/03/2016, and 12/04/2016. His swallow function was re-evaluated during that time, and he demonstrated no aspiration. He was felt appropriate for mechanical soft diet with chopped meats with gravy and thin liquids with aspiration precautions. His diet was advanced without difficulty. His continuous tube feeds were cycled to just at night between 8 p.m. and 8 a.m., for supplemental nutrition. These may potentially be discontinued in the outpatient setting depending on his future nutritional status. Given the history of recent immunosuppressants including IVIG, high-dose steroids, Copaxone, the ideal treatment duration for Proteus bacteremia and urinary tract infection is felt to be 14 days. Infectious Disease consultation was obtained to help delineate a discharge antibiotic regimen. On 12/07/2016, patient was seen by Dr. Samuel with recommendation to discontinue Ancef if discharge was desired, to administer Rocephin instead, and to complete 14-day antibiotic course using double-strength Septra 2 tablets p.o. b.i.d. for three days. The patient was very deconditioned and required maximal assist to even reposition himself in the bed. I expressed concern to both he and his about his ability to safely be discharged home, but they both have declined additional SNF placement or inpatient rehab at present because patient was becoming more depressed while he was in those facilities. For now, they elect for discharge to home. A hospital bed is being arranged as well as home health and home physical therapy through [facility]. The patient will be transported there by ambulance. Discharge Summary [address] [place]. [address] NAME: SUDARSHAN MIGUEL : [birth year] STATUS : DIS IN PAT#: [id number] AGE: 36 ADM/REG DATE : 11/26/16 MR#: [id number] REPORT SERV DATE: 12/08/16 DICTATED BY: DATE: REPORT STATUS : Draft TRANSCRIBED BY: ANDREW DATE: 12/07/16 His tube feeds will continue at night. He is currently utilizing vital protein at 60 mL per hour from 8 p.m. to 8 a.m. with free water flushes of 150 mL q.6 hours. He should also adhere to a mechanical soft diet with chopped meats with gravy and thin liquids with aspiration precautions at discharge. He will need to follow up with his neurologist within one to two weeks. He is to resume his Copaxone as soon as the home medication has been obtained. DISCHARGE MEDICATIONS: 1. Vitamin D 400 international units per PEG daily. 2. Multivitamin one tablet per PEG daily or crushed in applesauce and administer orally. 3. Florastor 250 mg per PEG twice a day - or crush in applesauce and administer orally. 4. Copaxone 40 mg subcu every Sunday, Sunday, Sunday. 5. Dulcolax 10 mg per rectum daily p.r.n. constipation. 6. Tylenol 650 mg per PEG or oral every 4 hours as needed for pain. 7. Zofran 4 mg p.o. or per PEG q.4 hours p.r.n. 8. Keppra elixir 500 mg in 5 mL, give 7.5 mL per PEG twice a day. 9. Septra double strength two tablets p.o. or per PEG twice a day for three remaining days starting on 12/08/2016 to complete 14 days of antibiotics. 40 minutes was spent in completion of the discharge including coordination of plan with case management, the patient, consultants, and the patient's family. DICTATED BY: Danyel Alcaraz/ANDREW El Lewis M.D. / [id number] CC: Danyel Alcaraz M.D. SALLY HORNE, MD
--- NOTE | ~2016-11-26 | CN ---
Consultation Report [facility] [address] [place]. [address] NAME: SUDARSHAN MIGUEL : [birth year] STATUS : ADM IN PAT#: [id number] AGE: 36 ADM/REG DATE : 11/26/16 MR#: [id number] REPORT SERV DATE: 12/07/16 DICTATED BY: BETSY MARROQUIN DATE: 12/07/16 REPORT STATUS : Draft TRANSCRIBED BY: MODL DATE: 12/07/16 INFECTIOUS DISEASE CONSULT DATE OF CONSULTATION: REASON FOR REFERRAL: Evaluation and treatment for completion of therapy for pyelonephritis and sepsis. HISTORY OF PRESENT ILLNESS: The patient is a 36-year-old male. He has a history most importantly of multiple sclerosis, which he has suffered for the past 18 years, and has been very debilitating to him. The treatment of it has been hampered by the fact that he is RAFAEL virus positive, so, therefore excluding the possibility of using certain immune suppressive agents that would cause that to reactivate. He has had also seizures in the past. He has difficulty with dysphagia and dysphonia. He has had worsening courses of multiple sclerosis this year. Ultimately, after intense evaluation, it was felt to be due to the multiple sclerosis itself and not RAFAEL virus. He has also been treated for pyelonephritis and sepsis, due to an ESBL E coli. Earlier this year. He was admitted with fever and a sepsis like presentation here on 11/26/2016, and was started on broad-spectrum therapy in form of vancomycin and meropenem, with a history of ESBL and the risk of multiple other pathogens. He was ultimately found to have Proteus in his urine and blood, it was very sensitive including to Ancef, so, he was changed to Ancef on 11/29/2016, and has been on it since. His fever and sepsis resolved in the intensive care unit. He has been on the floor for several days on the Ancef. His white blood cell count is normalized and he is doing much better. He was on high-dose steroids at the time of his admission and so was felt that his immunosuppressive state played a large role in his getting so sick from a urinary tract infection and he remains immune suppressed, so that has been modified some, but is now doing much better, and close to being ready to go home. He is day #11 of IV therapy. PAST MEDICAL HISTORY: Otherwise unremarkable. MEDICATIONS: As mentioned above. ALLERGIES: HE HAS NO KNOWN ANTIMICROBIAL ALLERGIES. SOCIAL HISTORY: He is disabled, cared for at home by family. He is a nonsmoker, he has no history of alcohol or substance abuse. FAMILY HISTORY: Coronary artery disease. PHYSICAL EXAMINATION: GENERAL: Chronically ill-appearing, but nontoxic adult male, in no acute distress. He is alert, has difficulty speaking, due to his dysphonia, but appears to be oriented. VITAL SIGNS: His temperature at present 98.1, pulse 79, respirations 16, blood pressure Consultation Report [facility] [id number] [place]. [address] NAME: SUDARSHAN MIGUEL : [birth year] STATUS : ADM IN PAT#: [id number] AGE: 36 ADM/REG DATE : 11/26/16 MR#: [id number] REPORT SERV DATE: 12/07/16 DICTATED BY: BETSY MARROQUIN DATE: 12/07/16 REPORT STATUS : Draft TRANSCRIBED BY: ANDREW DATE: 12/07/16 97/54. His weight is 70 kg. HEENT: Sclerae clear. No oral lesions. NECK: He has no cervical lymphadenopathy. LUNGS: Clear anteriorly. HEART: Regular rate and rhythm. ABDOMEN: Soft and nontender. Positive bowel sounds. EXTREMITIES: Without clubbing, cyanosis, or edema. SKIN: No skin lesions, rashes, or decubitus. LABORATORY DATA: White blood cell count 6.8 yesterday when last checked. Hematocrit 39.5, platelets 333, his BUN and creatinine 11 and 0.52. IMPRESSION: Pyelonephritis and sepsis, due to the Proteus in an immune suppressed debilitated patient, much better on antibiotics. RECOMMENDATIONS: 1. I agree with antibiotic management up to the present. 2. I have discussed with Dr. Lewis and I agree that two weeks of IV therapy is to be recommended in an immunosuppressed patient, but would prefer to avoid IV therapy at home, and potential complications of a PIC if he does leave today. So, I would recommend giving him a dose of Rocephin late in the day, on the day of discharge, also given 24 more hours of IV therapy, and then to complete the last one to two days using oral trimethoprim, sulfa, DS2 of those b.i.d. finally, if the patient remains, we will follow. I appreciate very much your consulting on this. SHAWN/JUANAL Betsy Marroquin M.D. / [id number] CC: Danyel Alcaraz JOHN D.
--- NOTE | ~2016-11-26 | HP ---
History And Physical [place] [id number] [facility] [place]. [address] NAME: SUDARSHAN MIGUEL : 76 STATUS : ADM IN PAT#: [id number] AGE: 36 ADM/REG DATE : 11/26/16 MR#: [id number] REPORT SERV DATE: 11/27/16 DICTATED BY: SHANICE PATEL DATE: 11/27/16 REPORT STATUS : Draft TRANSCRIBED BY: MODL DATE: 11/27/16 DATE OF ADMISSION: 11/26/2016 Critical care time charge on 11/26/2016, will be 45 minutes, commencing at 2315 to midnight. HISTORY OF PRESENT ILLNESS: This is a 36-year-old patient, who has had a diagnosis of multiple sclerosis for 18 years. The patient is followed by Dr. Megan Kirk, who is over at [facility] for his MS. The patient had previously been treated with Tysabri as well as Tecfidera. These medications were discontinued in 2015, secondary leukopenia. The patient is known RAFAEL virus positive. The patient was admitted to the hospital in August of this year for declining status of his MS and was treated with IVIG and IV steroids. During the hospitalization, there was some concern for PML, however, an LP was done and initially was positive for the RAFAEL virus, a regional expert on PML was called in on the case and recommended sending a CSF for titer on RAFAEL virus, which was negative. It was then thought this was not PML, but indeed severe MS. The patient had a prolonged protracted course from August to September including UTI with E. coli, that at that time was pansensitive. Placement of a PEG tube, which required surgical placement by Dr. Lai and eventually was transferred out to [facility] for rehabilitation. Today on 11/26/2016, the patient developed a high fever, was noted to have seizure activity, was given 4 mg of IV Ativan and transported to the emergency room at [facility] where he was found to be lethargic, hypotensive, and febrile, and in septic shock. Blood cultures and urine cultures have been sent. The initial urinalysis is very positive for urinary tract infection. As per paperwork from [facility], the patient had a recent urinary tract infection that was diagnosed on 11/16/2016, and turned out to be ESBL E. coli. Treatment at the time of this dictation is unknown and will need to be confirmed from paperwork from [facility]. We are asked to admit the patient and treat him for his septic shock. Code status was discussed with the , who is present and the patient remains a full code. His mental status has slowly improved since he has been in the emergency room, and he is maintaining an airway and currently does not need intubation. ALLERGIES: HE HAS NO KNOWN DRUG ALLERGIES. MEDICATIONS: At [facility] are Copaxone 40 mg IM Sunday, Sunday, Sunday; Florastor 250 mg b.i.d.; Keppra 500 mg twice a day down the PEG tube; vitamin D 400 units via PEG; Dulcolax suppository p.r.n. constipation; multivitamins without minerals; Zofran; Tylenol; and Ativan p.r.n. seizure activity. PAST MEDICAL HISTORY: Significant for: 1. Multiple sclerosis as mentioned above. The patient recently had a MRI of the brain and C-spine that shows findings consistent with relapsing, remitting pattern of severe MS. 2. Seizure disorder. 3. Dysphagia. 4. Dysphonia. 5. Severe debilitation. SOCIAL HISTORY: The patient has no history of alcohol, tobacco, or illicit drug use. Currently resides at [facility]. History And Physical [address] [address] NAME: SUDARSHAN MIGUEL : [birth year] STATUS : ADM IN [facility]#: [id number] AGE: 36 ADM/REG DATE : 11/26/16 MR#: [id number] REPORT SERV DATE: 11/27/16 DICTATED BY: SHANICE PATEL DATE: 11/27/16 REPORT STATUS : Draft TRANSCRIBED BY: ANDREW DATE: 11/27/16 FAMILY HISTORY: Significant for coronary artery disease. No history of any multiple sclerosis. REVIEW OF SYSTEMS: Unobtainable from the patient. But as per report, there has been no documented history of nausea, vomiting, diarrhea. PHYSICAL EXAMINATION: VITAL SIGNS: The patient is somewhat more responsive at this time. His blood pressure is now 85/51 with a MAP of 62, respiratory rate, I would say was about 22 when I saw him, temp we are going to say initially 103, repeat pending, and pulse 113, sinus tachycardia. GENERAL: The patient appears somewhat pale and diaphoretic, but is able to open his eyes and at least follow commands, but appears somewhat lethargic. SKIN: Moist to touch. HEENT: The head is atraumatic and normocephalic. Pupils are sluggishly reactive. No nystagmus is noted. Sclerae anicteric. Conjunctivae are pink. Nasal mucosa is within normal limits. Oral mucosa is moist. Tongue is midline. NECK: Supple without JVD, lymphadenopathy, or thyromegaly. LUNGS: Diminished breath sounds at the bases, right greater than left. There is no wheezing heard. CARDIAC: Reveals a regular rate and rhythm. ABDOMEN: Flat, nondistended, nontender. Bowel sounds are present, but diminished. No organosplenomegaly is appreciated. PEG tube is in place and is without drainage or evidence of infection. There is no flank tenderness. GENITALIA: The patient has normal male external genitalia. Smith catheter is in place. The patient has two peripheral IVs. The skin is not mottled. EXTREMITIES: Without cyanosis, clubbing, or edema. Pulses are palpable and symmetrical. Capillary refill is slightly greater than 2 seconds. NEUROLOGIC: Grossly is nonfocal. The patient is able to move extremities and withdraw from pain. Chest x-ray reveals possible infiltrate at the right lung base. His current lab work ABG on 28% shows a pH of 7.44, PCO2 of 28, PO2 of 71, bicarbonate of 18.6, white cell count is 6.4, hemoglobin 14, hematocrit 43, platelet count is 161,000. INR is 1.2. PTT is 26.6, lactic acid level is 4.0. Sodium 146, potassium 3.5, chloride 112, bicarbonate 29, BUN 18, creatinine 1.27. UA was sent and is floridly positive. Blood and urine cultures are sent. The patient has received at least 2 L in the emergency room and is on his third liter of normal saline. He did get a liter bolus of Lactated Ringer. He got Tylenol rectally for his temperature of 103. Smith catheter was placed. 1 g of Vanco and 1 g of cefepime were given. EKG shows a sinus tachycardia. No ST-segment elevations. ASSESSMENT AND PLAN: This is a 36-year-old patient with severe multiple sclerosis, previous history of seizures who presents now with high fevers, precipitating seizure more than likely in the setting of urosepsis and resulting in septic shock. The plan Will be the patient already had gotten a gram of Solu-Medrol in the emergency room as per the ER physician in reviewing his previous chart when he was treated with high-dose steroids for History And Physical [address] [place]. [address] NAME: SUDARSHAN MIGUEL : [birth year] STATUS : ADM IN PAT#: [id number] AGE: 36 ADM/REG DATE : 11/26/16 MR#: [id number] REPORT SERV DATE: 11/27/16 DICTATED BY: SHANICE PATEL DATE: 11/27/16 REPORT STATUS : Draft TRANSCRIBED BY: ANDREW DATE: 11/27/16 three days for an exacerbation of his MS. He will not receive any further steroids, pending evaluation by Neurology. Given his recent diagnosis of extended-spectrum beta-lactamases Escherichia coli, he will be changed to meropenem. Vancomycin will be continued pending culture results. The central line will be placed. Levophed will be started if needed. The patient already has received steroids and so we will not be doing a cortisol level. He will be very closely watched for management of his airway. He currently is a full code and is to be intubated, shocked, and resuscitated if he goes into a code situation. This was discussed with his . With regard to his seizure activity, the case was discussed with Dr. Cook by phone and the plan will be to give him a 500 mg IV bolus of Keppra and increase his daily dose from 500 b.i.d. to 750 mg b.i.d. He will be given subcu Lovenox for DVT prophylaxis and Protonix for GI prophylaxis. The patient is in critical condition at risk for possible intubation, further seizure activity, and neurologic deterioration, circulatory failure, renal failure, and needs IV fluid resuscitation, management with pressors if needed, careful review of lab work. The total charge for critical care time for 11/26/2016, will be 45 minutes. JEANMARIE/ANDREW Shanice Patel M.D. / [id number] CC: Danyel Macdonald M.D.
--- NOTE | ~2016-11-26 | OP ---
Record Of Operation [facility] [address] [place]. [address] NAME: SUDARSHAN MIGUEL : [birth year] STATUS : ADM IN PAT#: [id number] AGE: 36 ADM/REG DATE : 11/26/16 MR#: [id number] REPORT SERV DATE: 11/27/16 DICTATED BY: SHANICE SIMONS DATE: 11/27/16 REPORT STATUS : Draft TRANSCRIBED BY: MODL DATE: 11/27/16 DATE OF PROCEDURE: 11/27/2016 PROCEDURE: Placement of right internal jugular central line. REASON: Septic shock, need for hemodynamic monitoring, and need for pressors. CONSENT: Consent was obtained from the patient's . Risks and benefits were discussed. DESCRIPTION OF PROCEDURE: The right neck was prepped and draped in sterile fashion. Lidocaine 1% was used as a local anesthetic. The right internal jugular vein was localized using ultrasound guidance. Finder needle was inserted without difficulty into the right internal jugular with good blood return. This was then removed, and large bore needle was then placed into the right internal jugular with good blood return. Guidewire was threaded through the large bore needle which was then removed. The site was dilated appropriately. A 20 cm triple-lumen catheter was placed over the guidewire with removal of the guidewire and then advancement of a 20 cm triple-lumen catheter. Good blood return was obtained from all three ports. Sterile Biopatch was applied, and line was sewn in place with 2-0 silk with sterile dressing applied. The patient tolerated the procedure well. /JUANAL Shanice Simons M.D. / [id number] CC: Danyel Macdonald M.D.
[2016-11-26 19:34] LABS: BE (BASE EXCESS) -4.1 MEQ/L (0 +/- 2.5); DEVICE NC; HCO3 (ACTUAL BICARBONATE) 18.6 MEQ/L (23-27); INSTRUMENT SERIAL # 8087; PCO2 (CO2 TENSION) 28 MMHG (35-45); PO2 (O2 TENSION) 71 MMHG (79-93); SAMPLE Arterial; pH 7.44 (7.37-7.43)
[2016-11-26 19:45] LABS: BASOPHILS 0.2 %; BASOPHILS ABSOLUTE 0.01 10/3/uL (0.0-0.16); EOSINOPHILS 1.3 %; EOSINOPHILS ABSOLUTE 0.08 10/3/uL (0.0-0.53); ER CBC TAT 0 Hrs 05 Mins; HEMATOCRIT 43.6 % (40.0-51.0); HEMOGLOBIN 14.7 g/dL (13.6-17.8); IMMATURE GRANULOCYTES 0.8 %; IMMATURE GRANULOCYTES ABSOLUTE 0.05 10/3/uL (0.0-0.11); LYMPHOCYTES 5.9 %; LYMPHOCYTES ABSOLUTE 0.35 10/3/uL (0.67-4.30); MEAN CORPUS HGB CONC 33.7 g/dL (32.0-36.0); MEAN CORPUSCULAR HEMOGLOB 33.6 pg (26.0-34.0); MEAN PLATELET VOLUME 9.8 fL (9.2-13.0); MONOCYTES 0.3 %; MONOCYTES ABSOLUTE 0.02 10/3/uL (0.21-1.20); NEUTROPHILS 91.5 %; NEUTROPHILS ABSOLUTE 5.45 10/3/uL (2.02-8.40); RBC DISTRIBUTION WIDTH 12.4 % (12.0-16.0); RED CELL COUNT 4.38 10/6/uL (4.7-6.1)
[2016-11-26 19:46] LABS: MEAN CORPUSCULAR VOLUME 99.5 fL (80-100); PLATELET COUNT 161 10/3/uL (150-400)
[2016-11-26 19:47] LABS: MANUAL DIFF NO %
[~2016-11-26 19:47] MED LIST: KEPPRA500 PO; LIOR10 PO; NUEDEXTA 20-101 EACH PO; PROVIGIL2 PO; THERGRANM PO; VITAMIN D400 UNI1 PO
[2016-11-26 19:51] LABS: INTERNATIONAL NORMAL RATI 1.2 UNITS (-); PARTIAL THROMBO TIME 26.6 SEC (22.5-37.2); PROTIME (NOT ORD) 15.2 SEC (12.0-14.5)
[2016-11-26 20:01] LABS: ALKALINE PHOSPHATASE 90 U/L (45-117); BUN (BLOOD UREA NITROGEN) 18 MG/DL (6-23); CALCIUM, SERUM 8.4 MG/DL (8.5-10.4); CHLORIDE, SERUM 112 MMOL/L (96-112); CO2 (CARBON DIOXIDE) 29 MMOL/L (24-34); CREATININE 1.27 MG/DL (0.70-1.30); GFR AFRICAN AMERICAN 83 ML/MIN (>=60); GFR NON AFRICAN AMERICAN 71 ML/MIN (>=60); GLUCOSE, SERUM 176 MG/DL (60-99); POTASSIUM, SERUM 3.5 MMOL/L (3.5-5.3); SGOT(AST) 26 U/L (5-40); SGPT(ALT) 37 U/L (5-65); SODIUM, SERUM 146 MMOL/L (135-148); TOTAL BILIRUBIN 0.4 MG/DL (0-1.2)
[2016-11-26] MEDS ORDERED: COPAXONE 40 MG/ML SC (20:03)
[2016-11-26] MEDS ORDERED: FLORASTOR250 MG PEG (20:03)
[2016-11-26] MEDS ORDERED: VITAMIN D400 UNI1 PEG (20:04)
[2016-11-26] MEDS ORDERED: KEPPRAUDL PEG (20:04)
[2016-11-26] MEDS ORDERED: MULTIVITAMI1 PO (20:05)
[2016-11-26] MEDS ORDERED: BISR PR (20:05)
[2016-11-26] MEDS ORDERED: ZOFRAN4 PEG (20:06)
[2016-11-26] MEDS ORDERED: 8 HOUR650 MG PEG (20:06)
[2016-11-26] MEDS ORDERED: ATIVAN 1 MG IM (20:08)
[2016-11-26 21:09] LABS: ASCORBIC ACID (UR NOT ORDER) NEG (NEG); BILIRUBIN, URINE NEGATIVE (NEG); ER URINALYSIS TAT 0 Hrs 16 Mins; KETONE, URINE NEGATIVE (NEG); LEUKOCYTE ESTERASE(NOT OR LARGE (NEG); NITRITE (URINE) NEG (NEG); WBC (NOT ORDERED) (RFLEX) 70 (0-5)
[2016-11-27 01:08] LABS: ALLENS TEST Pos; BE (BASE EXCESS) -5.2 MEQ/L (0 +/- 2.5); CARBOXYHEMOGLOBIN 0.3 % (0-3); DEVICE NC; HCO3 (ACTUAL BICARBONATE) 17.5 MEQ/L (23-27); HEMOBLOGIN CONTENT 13.2 G/DL (14-18); INSTRUMENT SERIAL # 11843; METHEMOGLOBIN 0.5 % (0-3); O2 CONTENT 17.9 VOL% (18-24); PCO2 (CO2 TENSION) 27 MMHG (35-45); PO2 (O2 TENSION) 90 MMHG (79-93); SAMPLE Arterial; pH 7.43 (7.37-7.43)
[2016-11-27 01:24] LABS: LACTATE 4.1 MMOL/L (0.3-2.4)
[2016-11-27 03:52] LABS: HEMOGLOBIN 12.6 g/dL (13.6-17.8); MANUAL DIFF YES %; MEAN CORPUS HGB CONC 34.1 g/dL (32.0-36.0); MEAN CORPUSCULAR HEMOGLOB 34.1 pg (26.0-34.0); MEAN PLATELET VOLUME 9.7 fL (9.2-13.0); PLATELET COUNT 155 10/3/uL (150-400); RBC DISTRIBUTION WIDTH 12.6 % (12.0-16.0); WHITE BLOOD CELLS 15.6 10/3/uL (4.5-10.5)
[2016-11-27 04:06] LABS: BUN (BLOOD UREA NITROGEN) 17 MG/DL (6-23); CALCIUM, SERUM 8.3 MG/DL (8.5-10.4); CHLORIDE, SERUM 116 MMOL/L (96-112); CREATININE 0.95 MG/DL (0.70-1.30); GFR AFRICAN AMERICAN 117 ML/MIN (>=60); GFR NON AFRICAN AMERICAN 101 ML/MIN (>=60); GLUCOSE, SERUM 208 MG/DL (60-99); PHOSPHORUS, SERUM 2.3 MG/DL (2.5-4.5); POTASSIUM, SERUM 3.3 MMOL/L (3.5-5.3); SODIUM, SERUM 149 MMOL/L (135-148)
[2016-11-27 04:12] LABS: BAND NEUTROPHILS 17 %; LYMPHOCYTES 2 %; LYMPHOCYTES ABSOLUTE (CALC) 0.31 10/3/uL (0.67-4.30); MACROCYTES 1+ (5-10/OIF) (0-5/OIF); NEUTROPHILS ABSOLUTE (CALC) 15.29 10/3/uL (2.02-8.40); PLATELET ESTIMATE ADQ (ADEQUATE); SEGMENTED NEUTROPHIL (0) 81 %; TOTAL NUCLEATED CELLS 100; TOXIC GRANULATION SLT
[2016-11-27 04:18] LABS: CO2 (CARBON DIOXIDE) 21 MMOL/L (24-34)
[2016-11-27 12:15] LABS: BUN (BLOOD UREA NITROGEN) 14 MG/DL (6-23); CALCIUM, SERUM 8.5 MG/DL (8.5-10.4); CHLORIDE, SERUM 114 MMOL/L (96-112); CO2 (CARBON DIOXIDE) 20 MMOL/L (24-34); CREATININE 1.05 MG/DL (0.70-1.30); GFR AFRICAN AMERICAN 104 ML/MIN (>=60); GFR NON AFRICAN AMERICAN 90 ML/MIN (>=60); GLUCOSE, SERUM 232 MG/DL (60-99); SODIUM, SERUM 143 MMOL/L (135-148)
[2016-11-27 12:16] LABS: POTASSIUM, SERUM 4.2 MMOL/L (3.5-5.3)
[2016-11-27 13:24] LABS: PHOSPHORUS, SERUM 1.8 MG/DL (2.5-4.5)
[2016-11-28 03:40] LABS: HEMATOCRIT 35.3 % (40.0-51.0); HEMOGLOBIN 11.9 g/dL (13.6-17.8); MANUAL DIFF YES %; MEAN CORPUS HGB CONC 33.7 g/dL (32.0-36.0); MEAN CORPUSCULAR HEMOGLOB 33.3 pg (26.0-34.0); MEAN CORPUSCULAR VOLUME 98.9 fL (80-100); MEAN PLATELET VOLUME 9.9 fL (9.2-13.0); PLATELET COUNT 125 10/3/uL (150-400); RBC DISTRIBUTION WIDTH 12.6 % (12.0-16.0); RED CELL COUNT 3.57 10/6/uL (4.7-6.1); WHITE BLOOD CELLS 24.1 10/3/uL (4.5-10.5)
[2016-11-28 03:55] LABS: CALCIUM, SERUM 8.3 MG/DL (8.5-10.4); CHLORIDE, SERUM 116 MMOL/L (96-112); CO2 (CARBON DIOXIDE) 23 MMOL/L (24-34); CREATININE 0.56 MG/DL (0.70-1.30); GFR AFRICAN AMERICAN 152 ML/MIN (>=60); GFR NON AFRICAN AMERICAN 131 ML/MIN (>=60); POTASSIUM, SERUM 4.3 MMOL/L (3.5-5.3); SODIUM, SERUM 146 MMOL/L (135-148)
[2016-11-28 03:56] LABS: BUN (BLOOD UREA NITROGEN) 10 MG/DL (6-23); GLUCOSE, SERUM 133 MG/DL (60-99)
[2016-11-28 04:23] LABS: BAND NEUTROPHILS 11 %; LYMPHOCYTES 3 %; LYMPHOCYTES ABSOLUTE (CALC) 0.72 10/3/uL (0.67-4.30); MONOCYTES 3 %; MONOCYTES ABSOLUTE (CALC) 0.72 10/3/uL (0.21-1.20); NEUTROPHILS ABSOLUTE (CALC) 22.65 10/3/uL (2.02-8.40); PLATELET ESTIMATE SLT DEC (ADEQUATE); RBC MORPHOLOGY NORM (NORMAL); SEGMENTED NEUTROPHIL (0) 83 %; TOTAL NUCLEATED CELLS 100
[2016-11-28 04:47] LABS: PROCALCITONIN 28.19 ng/mL (<0.5)
[2016-11-29 03:39] LABS: BASOPHILS 0.1 %; BASOPHILS ABSOLUTE 0.01 10/3/uL (0.0-0.16); EOSINOPHILS 0.1 %; EOSINOPHILS ABSOLUTE 0.02 10/3/uL (0.0-0.53); HEMATOCRIT 33.6 % (40.0-51.0); HEMOGLOBIN 11.4 g/dL (13.6-17.8); IMMATURE GRANULOCYTES 0.6 %; IMMATURE GRANULOCYTES ABSOLUTE 0.09 10/3/uL (0.0-0.11); LYMPHOCYTES 5.1 %; LYMPHOCYTES ABSOLUTE 0.78 10/3/uL (0.67-4.30); MANUAL DIFF NO %; MEAN CORPUS HGB CONC 33.9 g/dL (32.0-36.0); MEAN CORPUSCULAR HEMOGLOB 33.4 pg (26.0-34.0); MEAN CORPUSCULAR VOLUME 98.5 fL (80-100); MEAN PLATELET VOLUME 9.8 fL (9.2-13.0); MONOCYTES 6.1 %; MONOCYTES ABSOLUTE 0.93 10/3/uL (0.21-1.20); NEUTROPHILS ABSOLUTE 13.46 10/3/uL (2.02-8.40); PLATELET COUNT 111 10/3/uL (150-400); RBC DISTRIBUTION WIDTH 12.5 % (12.0-16.0); RED CELL COUNT 3.41 10/6/uL (4.7-6.1); WHITE BLOOD CELLS 15.3 10/3/uL (4.5-10.5)
[2016-11-29 03:52] LABS: BUN (BLOOD UREA NITROGEN) 8 MG/DL (6-23); CHLORIDE, SERUM 114 MMOL/L (96-112); CO2 (CARBON DIOXIDE) 27 MMOL/L (24-34); GFR AFRICAN AMERICAN 159 ML/MIN (>=60); GFR NON AFRICAN AMERICAN 137 ML/MIN (>=60); GLUCOSE, SERUM 97 MG/DL (60-99); POTASSIUM, SERUM 3.9 MMOL/L (3.5-5.3); SODIUM, SERUM 145 MMOL/L (135-148)
[2016-11-29 04:43] LABS: PROCALCITONIN 13.42 ng/mL (<0.5)
[2016-11-30 03:25] LABS: BASOPHILS 0.3 %; BASOPHILS ABSOLUTE 0.02 10/3/uL (0.0-0.16); EOSINOPHILS 3.4 %; EOSINOPHILS ABSOLUTE 0.25 10/3/uL (0.0-0.53); HEMATOCRIT 35.4 % (40.0-51.0); IMMATURE GRANULOCYTES 0.4 %; IMMATURE GRANULOCYTES ABSOLUTE 0.03 10/3/uL (0.0-0.11); LYMPHOCYTES 14.6 %; LYMPHOCYTES ABSOLUTE 1.08 10/3/uL (0.67-4.30); MEAN CORPUS HGB CONC 33.9 g/dL (32.0-36.0); MEAN CORPUSCULAR HEMOGLOB 33.1 pg (26.0-34.0); MEAN CORPUSCULAR VOLUME 97.8 fL (80-100); MONOCYTES ABSOLUTE 0.52 10/3/uL (0.21-1.20); NEUTROPHILS 74.3 %; NEUTROPHILS ABSOLUTE 5.52 10/3/uL (2.02-8.40); PLATELET COUNT 122 10/3/uL (150-400); RBC DISTRIBUTION WIDTH 12.1 % (12.0-16.0); RED CELL COUNT 3.62 10/6/uL (4.7-6.1)
[2016-11-30 03:29] LABS: MANUAL DIFF NO %; WHITE BLOOD CELLS 7.4 10/3/uL (4.5-10.5)
[2016-11-30 03:36] LABS: BUN (BLOOD UREA NITROGEN) 7 MG/DL (6-23); CALCIUM, SERUM 8.2 MG/DL (8.5-10.4); CHLORIDE, SERUM 109 MMOL/L (96-112); CO2 (CARBON DIOXIDE) 29 MMOL/L (24-34); CREATININE 0.38 MG/DL (0.70-1.30); GFR AFRICAN AMERICAN 178 ML/MIN (>=60); GFR NON AFRICAN AMERICAN 154 ML/MIN (>=60); POTASSIUM, SERUM 3.8 MMOL/L (3.5-5.3); SODIUM, SERUM 145 MMOL/L (135-148)
[2016-11-30 03:38] LABS: GLUCOSE, SERUM 69 MG/DL (60-99)
[2016-11-30 04:31] LABS: PROCALCITONIN 4.12 ng/mL (<0.5)
[2016-12-01 03:43] LABS: BASOPHILS 0.4 %; BASOPHILS ABSOLUTE 0.02 10/3/uL (0.0-0.16); EOSINOPHILS 9.2 %; EOSINOPHILS ABSOLUTE 0.49 10/3/uL (0.0-0.53); HEMATOCRIT 35.2 % (40.0-51.0); HEMOGLOBIN 12.3 g/dL (13.6-17.8); IMMATURE GRANULOCYTES 0.4 %; IMMATURE GRANULOCYTES ABSOLUTE 0.02 10/3/uL (0.0-0.11); LYMPHOCYTES 16.4 %; LYMPHOCYTES ABSOLUTE 0.87 10/3/uL (0.67-4.30); MEAN CORPUS HGB CONC 34.9 g/dL (32.0-36.0); MEAN CORPUSCULAR HEMOGLOB 33.7 pg (26.0-34.0); MEAN CORPUSCULAR VOLUME 96.4 fL (80-100); MEAN PLATELET VOLUME 9.4 fL (9.2-13.0); MONOCYTES 10.2 %; MONOCYTES ABSOLUTE 0.54 10/3/uL (0.21-1.20); NEUTROPHILS 63.4 %; NEUTROPHILS ABSOLUTE 3.38 10/3/uL (2.02-8.40); PLATELET COUNT 131 10/3/uL (150-400); RBC DISTRIBUTION WIDTH 12.1 % (12.0-16.0); RED CELL COUNT 3.65 10/6/uL (4.7-6.1); WHITE BLOOD CELLS 5.3 10/3/uL (4.5-10.5)
[2016-12-01 03:55] LABS: MANUAL DIFF NO %
[2016-12-01 04:07] LABS: BUN (BLOOD UREA NITROGEN) 8 MG/DL (6-23); CALCIUM, SERUM 8.2 MG/DL (8.5-10.4); CHLORIDE, SERUM 110 MMOL/L (96-112); CO2 (CARBON DIOXIDE) 28 MMOL/L (24-34); CREATININE 0.42 MG/DL (0.70-1.30); GFR AFRICAN AMERICAN 171 ML/MIN (>=60); GFR NON AFRICAN AMERICAN 148 ML/MIN (>=60); POTASSIUM, SERUM 3.5 MMOL/L (3.5-5.3); SODIUM, SERUM 143 MMOL/L (135-148)
[2016-12-01 04:11] LABS: GLUCOSE, SERUM 95 MG/DL (60-99)
[2016-12-01 04:38] LABS: PROCALCITONIN 1.38 ng/mL (<0.5)
[2016-12-02 05:05] LABS: BASOPHILS 0.2 %; BASOPHILS ABSOLUTE 0.01 10/3/uL (0.0-0.16); EOSINOPHILS 14.1 %; EOSINOPHILS ABSOLUTE 0.84 10/3/uL (0.0-0.53); HEMATOCRIT 36.7 % (40.0-51.0); HEMOGLOBIN 12.6 g/dL (13.6-17.8); IMMATURE GRANULOCYTES 0.5 %; IMMATURE GRANULOCYTES ABSOLUTE 0.03 10/3/uL (0.0-0.11); LYMPHOCYTES 14.3 %; LYMPHOCYTES ABSOLUTE 0.85 10/3/uL (0.67-4.30); MEAN CORPUS HGB CONC 34.3 g/dL (32.0-36.0); MEAN CORPUSCULAR HEMOGLOB 33.5 pg (26.0-34.0); MEAN CORPUSCULAR VOLUME 97.6 fL (80-100); MEAN PLATELET VOLUME 9.5 fL (9.2-13.0); MONOCYTES 9.6 %; MONOCYTES ABSOLUTE 0.57 10/3/uL (0.21-1.20); NEUTROPHILS 61.3 %; NEUTROPHILS ABSOLUTE 3.65 10/3/uL (2.02-8.40); RBC DISTRIBUTION WIDTH 12.2 % (12.0-16.0); RED CELL COUNT 3.76 10/6/uL (4.7-6.1)
[2016-12-02 05:09] LABS: MANUAL DIFF NO %; PLATELET COUNT 180 10/3/uL (150-400)
[2016-12-02 05:17] LABS: BUN (BLOOD UREA NITROGEN) 4 MG/DL (6-23); CALCIUM, SERUM 8.3 MG/DL (8.5-10.4); CHLORIDE, SERUM 109 MMOL/L (96-112); CO2 (CARBON DIOXIDE) 28 MMOL/L (24-34); CREATININE 0.43 MG/DL (0.70-1.30); GFR AFRICAN AMERICAN 170 ML/MIN (>=60); GFR NON AFRICAN AMERICAN 146 ML/MIN (>=60); GLUCOSE, SERUM 124 MG/DL (60-99); POTASSIUM, SERUM 3.7 MMOL/L (3.5-5.3); SODIUM, SERUM 142 MMOL/L (135-148)
[2016-12-02 06:14] LABS: PROCALCITONIN 0.61 ng/mL (<0.5)
[2016-12-03 06:56] LABS: BASOPHILS 0.4 %; BASOPHILS ABSOLUTE 0.03 10/3/uL (0.0-0.16); EOSINOPHILS 18.4 %; EOSINOPHILS ABSOLUTE 1.24 10/3/uL (0.0-0.53); HEMATOCRIT 37.9 % (40.0-51.0); HEMOGLOBIN 12.9 g/dL (13.6-17.8); IMMATURE GRANULOCYTES 0.6 %; IMMATURE GRANULOCYTES ABSOLUTE 0.04 10/3/uL (0.0-0.11); LYMPHOCYTES 10.4 %; MANUAL DIFF NO %; MEAN CORPUSCULAR HEMOGLOB 33.6 pg (26.0-34.0); MEAN CORPUSCULAR VOLUME 98.7 fL (80-100); MEAN PLATELET VOLUME 9.4 fL (9.2-13.0); MONOCYTES 13.1 %; MONOCYTES ABSOLUTE 0.88 10/3/uL (0.21-1.20); NEUTROPHILS 57.1 %; NEUTROPHILS ABSOLUTE 3.85 10/3/uL (2.02-8.40); PLATELET COUNT 219 10/3/uL (150-400); RBC DISTRIBUTION WIDTH 12.2 % (12.0-16.0); RED CELL COUNT 3.84 10/6/uL (4.7-6.1); WHITE BLOOD CELLS 6.7 10/3/uL (4.5-10.5)
[2016-12-03 07:04] LABS: BUN (BLOOD UREA NITROGEN) 7 MG/DL (6-23); CALCIUM, SERUM 8.7 MG/DL (8.5-10.4); CHLORIDE, SERUM 112 MMOL/L (96-112); CO2 (CARBON DIOXIDE) 28 MMOL/L (24-34); CREATININE 0.41 MG/DL (0.70-1.30); GFR AFRICAN AMERICAN 173 ML/MIN (>=60); GFR NON AFRICAN AMERICAN 149 ML/MIN (>=60); GLUCOSE, SERUM 117 MG/DL (60-99); SODIUM, SERUM 146 MMOL/L (135-148)
[2016-12-06 06:38] LABS: CALCIUM, SERUM 9.1 MG/DL (8.5-10.4); CHLORIDE, SERUM 108 MMOL/L (96-112); CO2 (CARBON DIOXIDE) 28 MMOL/L (24-34); CREATININE 0.52 MG/DL (0.70-1.30); GFR AFRICAN AMERICAN 157 ML/MIN (>=60); GFR NON AFRICAN AMERICAN 135 ML/MIN (>=60); GLUCOSE, SERUM 108 MG/DL (60-99); POTASSIUM, SERUM 3.7 MMOL/L (3.5-5.3); SODIUM, SERUM 142 MMOL/L (135-148)
[2016-12-06 06:39] LABS: BUN (BLOOD UREA NITROGEN) 11 MG/DL (6-23)
[2016-12-06 06:41] LABS: BASOPHILS 0.6 %; BASOPHILS ABSOLUTE 0.04 10/3/uL (0.0-0.16); EOSINOPHILS 7.8 %; EOSINOPHILS ABSOLUTE 0.53 10/3/uL (0.0-0.53); HEMATOCRIT 39.5 % (40.0-51.0); IMMATURE GRANULOCYTES 0.4 %; IMMATURE GRANULOCYTES ABSOLUTE 0.03 10/3/uL (0.0-0.11); LYMPHOCYTES 13.9 %; LYMPHOCYTES ABSOLUTE 0.95 10/3/uL (0.67-4.30); MANUAL DIFF NO %; MEAN CORPUS HGB CONC 32.9 g/dL (32.0-36.0); MEAN CORPUSCULAR HEMOGLOB 33.2 pg (26.0-34.0); MEAN PLATELET VOLUME 9.3 fL (9.2-13.0); MONOCYTES 10.4 %; MONOCYTES ABSOLUTE 0.71 10/3/uL (0.21-1.20); NEUTROPHILS 66.9 %; NEUTROPHILS ABSOLUTE 4.57 10/3/uL (2.02-8.40); PLATELET COUNT 333 10/3/uL (150-400); RBC DISTRIBUTION WIDTH 12.6 % (12.0-16.0); RED CELL COUNT 3.91 10/6/uL (4.7-6.1); WHITE BLOOD CELLS 6.8 10/3/uL (4.5-10.5)
[2016-12-06 08:00] LABS: PROCALCITONIN 0.15 ng/mL (<0.5)
[2016-12-07] MEDS ORDERED: KEPPRAUDL PO (10:48)
[2016-12-07] MEDS ORDERED: BACDS PO (10:49)
== END 2016-12-07 18:23 | disposition home health service (06) | DRG 871 ==
LOC: ER 19:47 → CVICU 23:38 → 7NO 12-01 12:47
PROVIDERS: Emergency Medicine; Hospitalist; Internal Medicine Critical Care Medicine; Internal Medicine Pulmonary Disease
PROC: 05HM33Z Insertion of Infusion Device into Right Internal Jugular Vein, Percutaneous Approach (ICD-10-PCS; principal; 2016-11-27)
PROC: B543ZZA Ultrasonography of Right Jugular Veins, Guidance (ICD-10-PCS; 2016-11-27)
PROC: 0D20XUZ Change Feeding Device in Upper Intestinal Tract, External Approach (ICD-10-PCS; 2016-11-30)
DX: A41.89 Other specified sepsis (principal); R65.21 Severe sepsis with septic shock; N17.9 Acute kidney failure, unspecified; N39.0 Urinary tract infection, site not specified; E46 Unspecified protein-calorie malnutrition; G35 Multiple sclerosis; G40.909 Epilepsy, unspecified, not intractable, without status epilepticus; R13.12 Dysphagia, oropharyngeal phase; B96.4 Proteus (mirabilis) (morganii) as the cause of diseases classified elsewhere; F32.9 Major depressive disorder, single episode, unspecified; R49.0 Dysphonia; Z79.51 Long term (current) use of inhaled steroids; Z68.24 Body mass index [BMI] 24.0-24.9, adult
CPT/HCPCS: 36600; 70450; 70553; 71010; 72156; 74230; 80048; 80053; 81001; 82533; 82805; 82962; 83605; 83735; 84100; 84145; 85025; 85610; 85730; 87040; 87077; 87086; 87150; 87186; 87641; 92611-GN; 93005; 94640; 96365; 96366; 96367; 97110-GP; 97162-GP; 97166-GO; 97530-GP; 99291; A9270-GY; A9577; C9113; G8996-CK-GN; G8997-CK-GN; G8998-CK-GN; J0690; J0692; J1953; J2185; J2405; J2930; J3010; J3370; J3475; P9045